=== PATIENT | male | born 1950 | race American Indian/Alaskan Native ===

== ENCOUNTER 2018-09-14 08:28 | Inpatient (IN) | payer MEDICARE, OTHER ==
[2018-09-14] MEDS ORDERED: NACL 0.9% 500 ML 500 ML IV ONE (08:34)
[2018-09-14] MEDS ORDERED: TYLENOL PO ONE (08:40)
[2018-09-14 09:06] LABS: Basophils % (Auto) 0.3 % (0.0-1.8); Eosinophils % (Auto) 0.3 % (0.0-4.3); Hematocrit 36.4 % (35.5-45.6); Hemoglobin 12.7 gm/dl (11.8-15.2); Lymphocytes # (Auto) 1.1 K/mm3 (1.2-5.4); Lymphocytes % (Auto) 7.6 % (13.4-35.0); Mean Corpuscular HGB Conc 35 % (32-34); Mean Corpuscular Volume 84 fl (84-94); Monocytes # (Auto) 1.3 K/mm3 (0.0-0.8); Monocytes % (Auto) 9.1 % (0.0-7.3); Platelet Count 617 K/mm3 (140-440); Red Blood Count 4.35 M/mm3 (3.65-5.03); Red Cell Distribution Width 13.9 % (13.2-15.2)
--- NOTE | 2018-09-14 09:14 | XRay Report ---
AP CHEST: HISTORY: Possible sepsis No comparison. There is an approximate 5 cm cavitary lesion suspected in the right lower lobe. Small right pleural effusion is also suspected. The left lung is clear. Normal heart and mediastinal structures. IMPRESSION: Right lower lobe opacity concerning for pneumonia or abscess. Small right pleural effusion. Consider further evaluation with CT chest with contrast.
[2018-09-14 09:16] LABS: INR 1.08 (0.87-1.13)
[2018-09-14 09:20] LABS: Alanine Aminotransferase 11 units/L (7-56); Albumin 3.4 g/dL (3.9-5); BUN/Creatinine Ratio 9; Blood Urea Nitrogen 9 mg/dL (9-20); Calcium 8.8 mg/dL (8.4-10.2); Hemolysis Index 27
[2018-09-14] MEDS ORDERED: MORPHINE IV ONE (09:43)
[2018-09-14] MEDS ORDERED: NACL 0.9% 1000 ML 1,000 ML IV ONE (09:43)
[2018-09-14] MEDS ORDERED: ZOFRAN IV ONE (09:43)
[2018-09-14] MEDS ORDERED: NACL 0.9% 1000 ML IV ONE (09:44)
[2018-09-14] MEDS ORDERED: ROCEPHIN/NS 2 GM/100 ML 2 GM/100 ML BAG IV SCH (10:00)
[2018-09-14] MEDS ORDERED: ZITHROMAX 500 MG in NACL 0.9% 250ML 250 ML IV SCH (10:00)
--- NOTE | 2018-09-14 10:05 | Emergency Department Report ---
ED General Adult HPI - General Chief complaint: Chest Pain Stated complaint: R SIDE/CHEST PAIN Time Seen by Provider: 09/14/18 09:42 Source: patient Mode of arrival: Ambulatory Limitations: No Limitations - History of Present Illness Initial comments: This is a 67-year-old male has been coughing for the past few weeks. He does not describe joan hemoptysis. His states he had a fever of 102 at home. He did not take Tylenol prior to arrival. He states for the past few days he's had intermittent right-sided chest pain. He's had no recent travel no leg pain and no swelling. A chest film today showed the presence of a right lower lobe apparent abscess. The patient denies a history of TB or a positive skin test. He states he's never had a pneumonia before. The states patient has not seen a physician for more than 10 years. -: week(s) Location: chest Radiation: non-radiation Quality: aching Consistency: intermittent, now resolved Improves with: none, immobilization Associated Symptoms: chest pain, cough, fever/chills Treatments Prior to Arrival: none - Related Data Allergies Allergy/AdvReac Type Severity Reaction Status Date / Time No Known Allergies Allergy Verified 09/14/18 08:30 ED Review of Systems ROS: Stated complaint: R SIDE/CHEST PAIN Other details as noted in HPI Constitutional: denies: chills, fever Eyes: denies: eye pain, eye discharge, vision change ENT: denies: ear pain, throat pain Respiratory: cough. denies: shortness of breath, wheezing Cardiovascular: chest pain. denies: palpitations Endocrine: no symptoms reported Gastrointestinal: denies: abdominal pain, nausea, diarrhea Genitourinary: denies: urgency, dysuria Musculoskeletal: denies: back pain, joint swelling, arthralgia Skin: denies: rash, lesions Neurological: denies: headache, weakness, paresthesias Psychiatric: denies: anxiety, depression Hematological/Lymphatic: denies: easy bleeding, easy bruising ED Past Medical Hx - Past Medical History Previous Medical History?: No - Surgical History Past Surgical History?: No - Social History Smoking Status: Current Every Day Smoker Substance Use Type: Alcohol ED Physical Exam - General Limitations: No Limitations General appearance: alert, in no apparent distress - Head Head exam: Present: atraumatic, normocephalic - Eye Eye exam: Present: normal appearance. Absent: scleral icterus - ENT ENT exam: Present: mucous membranes moist - Neck Neck exam: Present: normal inspection - Respiratory Respiratory exam: Present: decreased breath sounds (on the right joan rales or rhonchi appreciated). Absent: respiratory distress - Cardiovascular Cardiovascular Exam: Present: regular rate, normal rhythm. Absent: systolic murmur, diastolic murmur, rubs, gallop - GI/Abdominal GI/Abdominal exam: Present: soft, normal bowel sounds. Absent: distended, tenderness, guarding, rebound - Rectal Rectal exam: Present: deferred - Extremities Exam Extremities exam: Present: normal inspection, normal capillary refill. Absent: calf tenderness - Back Exam Back exam: Present: normal inspection - Neurological Exam Neurological exam: Present: alert, oriented X3, CN II-XII intact. Absent: motor sensory deficit - Psychiatric Psychiatric exam: Present: normal affect, normal mood - Skin Skin exam: Present: warm, dry, intact, normal color. Absent: rash ED Course Vital Signs 09/14/18 09/14/18 09/14/18 08:31 09:11 09:31 Temperature 100 F H Pulse Rate 135 H 141 H 116 H Respiratory 22 27 H Rate Blood Pressure 169/113 O2 Sat by Pulse 93 Oximetry 09/14/18 09/14/18 09/14/18 09:39 10:00 10:06 Temperature Pulse Rate 116 H Respiratory 18 22 18 Rate Blood Pressure 153/99 O2 Sat by Pulse 98 96 Oximetry 09/14/18 10:30 Temperature Pulse Rate 103 H Respiratory 26 H Rate Blood Pressure 149/93 O2 Sat by Pulse Oximetry - Reevaluation(s) Reevaluation #1: Discussed with hospitalist. Patient given ceftriaxone and azithromycin. CT of the chest has been ordered. I reviewed the x-ray. It does appear consistent with a thick walled cavity possible abscess. CT will certainly be helpful in elucidating the pathology involved. 09/14/18 10:58 ED Medical Decision Making - Lab Data Result diagrams: 09/14/18 08:47 09/14/18 08:47 Laboratory Results - last 24 hr 09/14/18 09/14/18 09/14/18 08:47 08:47 08:47 WBC 14.2 H RBC 4.35 Hgb 12.7 Hct 36.4 MCV 84 MCH 29 MCHC 35 H RDW 13.9 Plt Count 617 H Lymph % (Auto) 7.6 L Morton % (Auto) 9.1 H Eos % (Auto) 0.3 Baso % (Auto) 0.3 Lymph # 1.1 L Morton # 1.3 H Eos # 0.0 Baso # 0.0 Seg Neutrophils % 82.7 H Seg Neutrophils # 11.7 H PT 14.7 INR 1.08 VBG pH Sodium 133 L Potassium 3.7 Chloride 89.2 L Carbon Dioxide 27 Anion Gap 21 BUN 9 Creatinine 1.0 Estimated GFR > 60 BUN/Creatinine Ratio 9 Glucose 194 H Lactic Acid Calcium 8.8 Total Bilirubin 0.40 AST 16 ALT 11 Alkaline Phosphatase 75 Total Protein 8.2 Albumin 3.4 L Albumin/Globulin Ratio 0.7 09/14/18 09/14/18 08:47 08:47 WBC RBC Hgb Hct MCV MCH MCHC RDW Plt Count Lymph % (Auto) Morton % (Auto) Eos % (Auto) Baso % (Auto) Lymph # Morton # Eos # Baso # Seg Neutrophils % Seg Neutrophils # PT INR VBG pH 7.437 H Sodium Potassium Chloride Carbon Dioxide Anion Gap BUN Creatinine Estimated GFR BUN/Creatinine Ratio Glucose Lactic Acid 1.50 Calcium Total Bilirubin AST ALT Alkaline Phosphatase Total Protein Albumin Albumin/Globulin Ratio - EKG Data -: EKG Interpreted by Me EKG shows normal: sinus rhythm, axis, intervals, QRS complexes, ST-T waves Rate: tachycardia - EKG Data Interpretation: no acute changes - Radiology Data Radiology results: report reviewed Critical care attestation.: If time is entered above; I have spent that time in minutes in the direct care of this critically ill patient, excluding procedure time. ED Disposition Clinical Impression: Cavitary pneumonia Disposition: - OP ADMIT IP TO THIS HOSP Is pt being admited?: Yes Does the pt Need Aspirin: Yes Condition: Stable Instructions: Bacterial Pneumonia (ED) Time of Disposition: 11:00
[2018-09-14] MEDS ORDERED: ZOFRAN IV PRN (10:34)
[2018-09-14] MEDS ORDERED: ALUM-MAG HYDROX-SIMETH 200-200-20MG/5ML PO PRN (10:34)
--- NOTE | 2018-09-14 10:37 | Progress Note ---
Assessment and Plan Sepsis due to lung abscess RLL lung abscess, r/o malignancy tobacco abuse alcohol abuse - admit to tele - consult ID and pulmonary - continue empiric abx, sputum cx - dvt Px Subjective Date of service: 09/14/18 Interval history: This is a 67-year-old male has been coughing for the past few weeks. He does not describe joan hemoptysis. His states he had a fever of 102 at home. He did not take Tylenol prior to arrival. He states for the past few days he's had intermittent right-sided chest pain. He's had no recent travel no leg pain and no swelling. A chest film today showed the presence of a right lower lobe apparent abscess. Objective - Constitutional Vitals: Vital Signs - 12hr 09/14/18 09/14/18 09/14/18 08:31 09:39 10:06 Temperature 100 F H Pulse Rate 135 H Respiratory 18 18 Rate Blood Pressure 169/113 O2 Sat by Pulse 93 98 Oximetry - Labs CBC & Chem 7: 09/14/18 08:47 09/14/18 08:47 Labs: Abnormal lab results 09/14/18 09/14/18 09/14/18 Range/Units 08:47 08:47 08:47 WBC 14.2 H (4.5-11.0) K/mm3 MCHC 35 H (32-34) % Plt Count 617 H (140-440) K/mm3 Lymph % (Auto) 7.6 L (13.4-35.0) % Jewell % (Auto) 9.1 H (0.0-7.3) % Lymph # 1.1 L (1.2-5.4) K/mm3 Jewell # 1.3 H (0.0-0.8) K/mm3 Seg Neutrophils % 82.7 H (40.0-70.0) % Seg Neutrophils # 11.7 H (1.8-7.7) K/mm3 VBG pH 7.437 H (7.320-7.420) Sodium 133 L (137-145) mmol/L Chloride 89.2 L (98-107) mmol/L Glucose 194 H (75-100) mg/dL Albumin 3.4 L (3.9-5) g/dL
[2018-09-14] MEDS ORDERED: ASPIRIN PO ONE (11:00)
[2018-09-14] MEDS ORDERED: D5NS 1,000 ML IV SCH (11:00)
[2018-09-14] MEDS ORDERED: ASPIRIN ONE (12:17)
[2018-09-14] MEDS ORDERED: MORPHINE ONE (12:18)
--- NOTE | 2018-09-14 12:19 | Cat Scan Report ---
PROCEDURE: CT CHEST W CON TECHNIQUE: Computerized axial tomography of the chest was performed during the IV injection of iodin ated nonionic contrast. CT DOSE LENGTH PRODUCT: 616.5 mGycm HISTORY: lung abscess right, consider cancer COMPARISONS: None available at time of interpretation . FINDINGS: Normal cardiac size without pericardial effusion. Intact normal caliber thoracic aorta. Normal-appear ing esophagus. No mediastinal adenopathy. No left hilar mass. Nonspecific slight adenopathy in right hilum may be reactive. Moderate right pleural effusion posteriorly and superiorly. Adjacent right lower lobe consolidation m ay be compressive atelectasis and/or pneumonia. An irregularly marginated thick walled cavitary lesion is noted in the lateral right lower lobe measu ring approximately 7.2 cm. It contains a central air-fluid level with moderate free fluid. Air bubble s are also present within the fluid contents. Findings may reflect lung abscess. Differential include s cavitary neoplasm. Nonspecific, smoothly marginated, simple appearing, low density bilateral renal lesions are statistic ally most likely cysts. They are too numerous to count. Degenerative change in the spine. No acute fracture. No pneumothorax. Upper lobe pulmonary emphysema. Nonspecific nodular anterior pleural calcifications bilaterally. Linear scar versus atelectasis left lung base. IMPRESSION: Irregularly marginated thick walled cavitary lesion in lateral right lower lobe, containing fluid lev el and air bubbles, may represent lung abscess. Differential includes cavitary neoplasm Moderate right pleural effusion posteriorly and superiorly. Adjacent right lower lobe consolidation m ay be compressive atelectasis and/or pneumonia Nonspecific slight adenopathy in the right hilum may be reactive and/or neoplastic Upper lobe pulmonary emphysema Nonspecific nodular anterior pleural calcifications in both upper lobes This document is electronically signed by Aren Melgar MD., Sep 14 2018 12:17:00 PM ET
[2018-09-14] MEDS ORDERED: APRESOLINE ONE (12:35)
[2018-09-14] MEDS: APRESOLINE IV PRN ×3 (12:37→23:54)
[2018-09-14 12:45] LABS: Bilirubin,Urine NEG (Negative); Blood,Urine MOD (Negative); Color,Urine Straw (Yellow); Protein,Urine <15 mg/dL mg/dL (Negative); Urobilinogen,Urine < 2.0 mg/dL (<2.0)
[2018-09-14] MEDS ORDERED: VANCOMYCIN PHARMACY TO DOSE IV SCH (13:00)
[2018-09-14] MEDS ORDERED: TYLENOL ONE (13:10)
[2018-09-14] MEDS ORDERED: VANCOMYCIN 1,250 MG in NACL 0.9% 250ML 250 ML IV ONE (14:00)
[2018-09-14] MEDS: DUONEB *Not for PRN Use IH SCH ×2 (14:36→20:50)
[2018-09-14] MEDS: LOVENOX SUB-Q SCH (21:28)
[2018-09-14] MEDS: PEPCID PO SCH (21:28)
[2018-09-14] MEDS: NORCO 5/325 PO PRN (23:58)
[2018-09-15] MEDS: TYLENOL PO PRN ×3 (01:42→19:54)
[2018-09-15] MEDS ORDERED: D5NS 1,000 ML IV SCH (01:55)
[2018-09-15] MEDS ORDERED: VANCOMYCIN/NS 1 GM/250 ML 1 GM/250 ML BAG IV SCH (02:00)
[2018-09-15] MEDS: DUONEB *Not for PRN Use IH SCH ×4 (02:36→20:25)
[2018-09-15] MEDS: APRESOLINE IV PRN ×3 (04:45→19:55)
[2018-09-15 05:09] LABS: Basophils # (Auto) 0.2 K/mm3 (0.0-0.1); Basophils % (Auto) 0.9 % (0.0-1.8); Eosinophils % (Auto) 0.1 % (0.0-4.3); Hematocrit 33.4 % (35.5-45.6); Hemoglobin 11.3 gm/dl (11.8-15.2); Lymphocytes # (Auto) 0.7 K/mm3 (1.2-5.4); Lymphocytes % (Auto) 3.6 % (13.4-35.0); Mean Corpuscular HGB Conc 34 % (32-34); Mean Corpuscular Volume 84 fl (84-94); Monocytes # (Auto) 1.2 K/mm3 (0.0-0.8); Monocytes % (Auto) 6.6 % (0.0-7.3); Platelet Count 472 K/mm3 (140-440); Red Blood Count 3.97 M/mm3 (3.65-5.03); Red Cell Distribution Width 13.7 % (13.2-15.2)
[2018-09-15 05:15] LABS: BUN/Creatinine Ratio 10; Blood Urea Nitrogen 8 mg/dL (9-20); Calcium 8.1 mg/dL (8.4-10.2); Hemolysis Index 5
[2018-09-15] MEDS: D5NS 1,000 ML IV SCH ×2 (06:57→23:46)
--- NOTE | 2018-09-15 08:06 | Consultation ---
History of Present Illness - Reason for Consult Consult date: 09/15/18 Lung abscess Requesting physician: JACQUELINE PATEL - History of Present Illness HPI: 67 yo M PMH HTN, doesn't take meds and has not been to a doctor in many years, who became sick last 09/06/18 with fever, chills, cough of brownish sputum, not foul smelling, R sided chest pain worse with breathing and coughing and SOB. Pt reports symptoms started after an episode of binge drinking. Denies N/V/D, he is constipated. Denies hemoptysis. No recent travel. No travel outside [facility]. Denies TB contacts, denies prior TB skin testing. Has never been in jailed. In the ER T 100, pulse 135, RR 22, SO2 93%, BP 169/113. Labs showed WBC 14.2, H/H 12.7, PLTs 617. CXR showed right lower lobe opacity co ncerning for pneumonia or abscess. CT chest showed irregular marginated thick walled cavitary lesion in lateral right lower lobe containing fluid level and air bubbles, that may represent an abscess, differential includes cavitary neoplasm. Moderate right pleural effusion posteriorly and superiorly. Adjacent right lower lobe consolidation might be compressive atelectasis and/or pneumonia. Nonspecific slight adenopathy in the right hilum may be reactive and/or neoplastic. Pt was started on ceftriaxone, azithromycin and vancomycin. ID is consulted for further antibiotic management. Microbiology: -Blood cultures 09/14: in progress -Sputum culture 09/15 in progress Current Antimicrobials: Ceftriaxone 09/14- Vancomycin 09/14- Azithromycin 09/14- Review of systems Constitutional: + chills, fever Eyes: denies: eye pain, eye discharge, vision change ENT: denies: ear pain, throat pain Respiratory: +cough. + shortness of breath, + R sided CP Cardiovascular: + R sided chest pain. denies: palpitations Endocrine: no symptoms reported Gastrointestinal: denies: abdominal pain, nausea, diarrhea. +constipation. Genitourinary: denies: urgency, dysuria Musculoskeletal: denies: back pain, joint swelling, arthralgia Skin: denies: rash, lesions Neurological: denies: headache, weakness, paresthesias Psychiatric: denies: anxiety, depression Hematological/Lymphatic: denies: easy bleeding, easy bruising Past History Past Medical History: other (HTN) Social history: , smoking, alcohol abuse, other (Smokes marijuana. Has used cocaine in the past, not recently. No IVDU.) Medications and Allergies Allergies Allergy/AdvReac Type Severity Reaction Status Date / Time No Known Allergies Allergy Verified 09/14/18 08:30 Home Medications Medication Instructions Recorded Confirmed Last Taken Type Ascorbic Acid/Multivit-Min 1,000 mg PO PRN 09/14/18 09/14/18 Unknown History [Emergen-C 1,000 mg Packet] Ibuprofen [Motrin] 400 mg PO Q6H PRN 09/14/18 09/14/18 Unknown History Active Meds: Active Medications Acetaminophen (Tylenol) 650 mg PO Q4H PRN PRN Reason: Pain MILD(1-3)/Fever >100.5/MATIAS Last Admin: 09/15/18 01:42 Dose: 650 mg Documented by: Acetaminophen/Hydrocodone Bitart (Madison 5/325) 2 each PO Q6H PRN PRN Reason: Pain, Moderate (4-6) Last Admin: 09/14/18 23:58 Dose: 2 each Documented by: Al Hydrox/Mg Hydrox/Simethicone (Alum-Mag Hydrox-Simeth [phone]/5ml) 30 ml PO Q4H PRN PRN Reason: Indigestion Albuterol/Ipratropium (Duoneb *Not For Prn Use*) 1 ampul IH Q6HRT [facility] Last Admin: 09/15/18 02:36 Dose: Not Given Documented by: Amlodipine Besylate (Norvasc) 5 mg PO QDAY [facility] Enoxaparin Sodium (Lovenox) 40 mg SUB-Q QDAY@2200 [facility] Last Admin: 09/14/18 21:28 Dose: 40 mg Documented by: Famotidine (Pepcid) 20 mg PO BID [facility] Last Admin: 09/14/18 21:28 Dose: 20 mg Documented by: Hydralazine HCl (Apresoline) 10 mg IV Q4H PRN PRN Reason: Hypertension Last Admin: 09/15/18 04:45 Dose: 10 mg Documented by: Ceftriaxone Sodium (Rocephin/Ns 2 Gm/100 Ml) 2 gm in 100 mls @ 200 mls/hr IV Q24HR [facility]; Protocol Azithromycin 500 mg/ Sodium (Chloride) 250 mls @ 250 mls/hr IV Q24HR [facility]; Protocol Vancomycin HCl (Vancomycin/Ns 1 Gm/250 Ml) 1 gm in 250 mls @ 167.007 mls/hr IV Q12H [facility] Last Admin: 09/15/18 01:15 Dose: 167.007 mls/hr Documented by: Dextrose/Sodium Chloride (D5ns) 1,000 mls @ 83 mls/hr IV DIRECT [facility] Last Admin: 09/15/18 06:57 Dose: 83 mls/hr Documented by: Metoprolol Tartrate (Lopressor) 25 mg PO BID [facility] Ondansetron HCl (Zofran) 4 mg IV Q8H PRN PRN Reason: N/V unrelieved by Meenu Physical Examination - Physical Exam Narrative exam: General appearance: Pt is Awake, Alert in NAD, conversant. On room air. Not toxic appearing. Eyes: anicteric sclerae, moist conjunctivae; no lid-lag; PERRLA HENT: Atraumatic; oropharynx clear with moist mucous membranes and no mucosal ulcerations/no oral thrush; normal hard and soft palate. Normal external ears. Neck: Trachea midline; supple, no thyromegaly or lymphadenopathy Lungs: Decreased BS Right base. Normal respiratory effort and no intercostal retractions CV: RRR, no murmurs Abdomen: Soft, non-tender; no masses or hepatosplenomegaly Extremities: No peripheral edema or extremity lymphadenopathy Skin: Normal temperature, turgor and texture; no rash, ulcers or subcutaneous nodules Psych: Appropriate affect, alert and oriented to person, place and time. Neuro: alert and oriented x 3. Moving all extermities. Non-focal. Lines: No CVL / PICC - Constitutional Vitals: Vital Signs Temp Pulse Resp BP Pulse Ox 102.6 F H 106 H 18 169/102 95 09/15/18 01:37 09/15/18 06:17 09/14/18 21:05 09/15/18 04:45 09/14/18 21:23 Temperature -Last 24 Hours Temperature 102.6 F Temperature 97.6 F Temperature 98.8 F Temperature 98.1 F Temperature 98.3 F Temperature 100 F Temperature 99.1 F Temperature 100 F Results - Labs CBC & Chem 7: 09/15/18 04:40 09/15/18 04:40 Labs: Abnormal lab results 09/14/18 09/14/18 09/14/18 Range/Units 08:47 08:47 08:47 WBC 14.2 H (4.5-11.0) K/mm3 Hgb (11.8-15.2) gm/dl Hct (35.5-45.6) % MCHC 35 H (32-34) % Plt Count 617 H (140-440) K/mm3 Lymph % (Auto) 7.6 L (13.4-35.0) % Coleman % (Auto) 9.1 H (0.0-7.3) % Lymph # 1.1 L (1.2-5.4) K/mm3 Coleman # 1.3 H (0.0-0.8) K/mm3 Baso # (0.0-0.1) K/mm3 Seg Neutrophils % 82.7 H (40.0-70.0) % Seg Neutrophils # 11.7 H (1.8-7.7) K/mm3 VBG pH 7.437 H (7.320-7.420) Sodium 133 L (137-145) mmol/L Potassium (3.6-5.0) mmol/L Chloride 89.2 L (98-107) mmol/L BUN (9-20) mg/dL Glucose 194 H (75-100) mg/dL Calcium (8.4-10.2) mg/dL Albumin 3.4 L (3.9-5) g/dL Ur Specific Leopold (1.003-1.030) 09/14/18 09/15/18 09/15/18 Range/Units 11:51 04:40 04:40 WBC 18.6 H (4.5-11.0) K/mm3 Hgb 11.3 L (11.8-15.2) gm/dl Hct 33.4 L (35.5-45.6) % MCHC (32-34) % Plt Count 472 H (140-440) K/mm3 Lymph % (Auto) 3.6 L (13.4-35.0) % Coleman % (Auto) (0.0-7.3) % Lymph # 0.7 L (1.2-5.4) K/mm3 Coleman # 1.2 H (0.0-0.8) K/mm3 Baso # 0.2 H (0.0-0.1) K/mm3 Seg Neutrophils % 88.8 H (40.0-70.0) % Seg Neutrophils # 16.5 H (1.8-7.7) K/mm3 VBG pH (7.320-7.420) Sodium 133 L (137-145) mmol/L Potassium 3.3 L (3.6-5.0) mmol/L Chloride 95.5 L (98-107) mmol/L BUN 8 L (9-20) mg/dL Glucose 180 H (75-100) mg/dL Calcium 8.1 L (8.4-10.2) mg/dL Albumin (3.9-5) g/dL Ur Specific Leopold 1.031 H (1.003-1.030) - Imaging and Cardiology Chest x-ray: report reviewed CT scan - chest: report reviewed Assessment and Plan Assessment: 67-year-old male PMH HTN, not on meds, has not been to a doctor in many years, who abuses alcohol and tobacco and presented to the ER on 09/14/18 with complaints of cough, fever, SOB and right-sided chest pain. Found to have a right lower lobe lung cavitary lesion. 1) Sepsis: Present on admission, manifested by fever, tachycardia, leukocytosis. Etiology R lung abscess/pneumonia. 2) RLL cavitary lesion with adjacent consolidation and moderate pleural effusion. Differential diagnosis includes lung abscess/aspiration pneumonia vs. cavitary neoplasm. Suspect is due to aspiration due to reduce level of consciousness in setting of alcoholism. Mouth exam grossly normal, therefore less likely due to periodontal disease/gingivitis. No h/o of overseas travel or TB contacts. 3) h/o etoh and tobacco abuse Plan: -Will f/u sputum cx and blood cx -check Quantiferon, HIV -Stop azithromycin, ceftriaxone, iv vancomycin -Start zosyn -d/w pt, RN -Further recommendations as case progresses. Thank you for your consultation, will follow up with you. Rebekah Whaley MD Infectious Diseases Specialist [facility] ([facility] M [phone]
[2018-09-15] MEDS ORDERED: ZITHROMAX 500 MG in NACL 0.9% 250ML 250 ML IV SCH (10:00)
[2018-09-15] MEDS ORDERED: ROCEPHIN/NS 2 GM/100 ML 2 GM/100 ML BAG IV SCH (10:00)
[2018-09-15] MEDS: NORVASC PO SCH (10:12)
[2018-09-15] MEDS: LOPRESSOR PO SCH ×2 (10:12→21:07)
[2018-09-15] MEDS: PEPCID PO SCH ×2 (10:13→21:07)
--- NOTE | 2018-09-15 10:47 | History and Physical Report ---
History of Present Illness Date of examination: 09/14/18 Date of admission: 09/14/18 10:35 Chief complaint: right sided chest pain History of present illness: This is a 67-year-old male with medical history of HTN doesn't take meds, tobacco and alcohol abuse presented with c/o coughing of brownish sputum for the past few weeks along with fever, chills. He does not describe joan hemoptysis. His stated that he had a fever of 102 at home. He did not take Tylenol prior to arrival. He also c/o intermittent right-sided chest pain for the past few days specially when he coughs . He's had no recent travel no leg pain and no swelling. In the ER CXR showed right lower lobe opacity concerning for pneumonia or abscess. CT chest showed irregular marginated thick walled cavitary lesion in lateral right lower lobe containing fluid level and air bubbles, that may represent an abscess, differential includes cavitary neoplasm. He was placed on iv abx, being admitted for further evaluation and management. Review of systems Constitutional: + chills, fever Eyes: denies: eye pain, eye discharge, vision change ENT: denies: ear pain, throat pain Respiratory: +cough. + shortness of breath, + R sided CP Cardiovascular: + R sided chest pain. denies: palpitations Endocrine: no symptoms reported Gastrointestinal: denies: abdominal pain, nausea, diarrhea. +constipation. Genitourinary: denies: urgency, dysuria Musculoskeletal: denies: back pain, joint swelling, arthralgia Skin: denies: rash, lesions Neurological: denies: headache, weakness, paresthesias Psychiatric: denies: anxiety, depression Hematological/Lymphatic: denies: easy bleeding, easy bruising Past History Past Medical History: other (HTN) Past Surgical History: No surgical history Social history: , smoking, alcohol abuse, other (Smokes marijuana. Has used cocaine in the past, not recently. No IVDU.) Family history: cancer (in sisters unsure what type) Medications and Allergies Allergies Allergy/AdvReac Type Severity Reaction Status Date / Time No Known Allergies Allergy Verified 09/14/18 08:30 Home Medications Medication Instructions Recorded Confirmed Last Taken Type ALBUTEROL NEB's [Proventil 0.083% 2.5 mg IH Q4HRT PRN #30 nebu 09/20/18 Unknown Rx NEBS] Acetaminophen [Acetaminophen TAB] 650 mg PO Q4H PRN #30 tablet 09/20/18 Unknown Rx Famotidine [Pepcid] 20 mg PO BID #15 tablet 09/20/18 Unknown Rx HYDROcodone/APAP 5-325 [[place] 2 each PO Q6H PRN #10 tablet 09/20/18 Unknown Rx 5-325 mg TAB] Ipratropium/Albuterol Sulfate 1 ampul IH TIDRT #30 ampul.neb 09/20/18 Unknown Rx [DUONEB *Not for PRN Use*] Lisinopril [Zestril TAB] 10 mg PO BID #60 tablet 09/20/18 Unknown Rx Metoprolol [Lopressor TAB] 50 mg PO BID #60 tablet 09/20/18 Unknown Rx amLODIPine [Norvasc] 10 mg PO DAILY #30 tablet 09/20/18 Unknown Rx Active Meds: Active Medications Acetaminophen (Tylenol) 650 mg PO Q4H PRN PRN Reason: Pain MILD(1-3)/Fever >100.5/MATIAS Last Admin: 09/15/18 10:14 Dose: 650 mg Documented by: Acetaminophen/Hydrocodone Bitart ([place] 5/325) 2 each PO Q6H PRN PRN Reason: Pain, Moderate (4-6) Last Admin: 09/14/18 23:58 Dose: 2 each Documented by: Al Hydrox/Mg Hydrox/Simethicone (Alum-Mag Hydrox-Simeth 718-235-37mm/5ml) 30 ml PO Q4H PRN PRN Reason: Indigestion Albuterol/Ipratropium (Duoneb *Not For Prn Use*) 1 ampul IH Q6HRT [facility] Last Admin: 09/15/18 08:03 Dose: 1 ampul Documented by: Amlodipine Besylate (Norvasc) 5 mg PO QDAY [facility] Last Admin: 09/15/18 10:12 Dose: 5 mg Documented by: Enoxaparin Sodium (Lovenox) 40 mg SUB-Q QDAY@2200 [facility] Last Admin: 09/14/18 21:28 Dose: 40 mg Documented by: Famotidine (Pepcid) 20 mg PO BID [facility] Last Admin: 09/15/18 10:13 Dose: 20 mg Documented by: Hydralazine HCl (Apresoline) 10 mg IV Q4H PRN PRN Reason: Hypertension Last Admin: 09/15/18 04:45 Dose: 10 mg Documented by: Dextrose/Sodium Chloride (D5ns) 1,000 mls @ 83 mls/hr IV DIRECT [facility] Last Admin: 09/15/18 06:57 Dose: 83 mls/hr Documented by: Piperacillin Sod/Tazobactam Sod (Zosyn/Ns 3.375gm/50ml) 3.375 gm in 50 mls @ 100 mls/hr IV Q8H [facility]; Protocol Metoprolol Tartrate (Lopressor) 25 mg PO BID [facility] Last Admin: 09/15/18 10:12 Dose: 25 mg Documented by: Ondansetron HCl (Zofran) 4 mg IV Q8H PRN PRN Reason: N/V unrelieved by Reglan Exam - Physical Exam Narrative exam: GENERAL: well-developed and well-nourished -Welsh male lying on bed appeared to be in no discomfort. HEENT: Normocephalic. Atraumatic. No conjunctival congestion or icterus. Patient has moist mucous membranes. NECK: Supple. Trachea midline. CHEST/LUNGS: Coarse breath sounds auscultated mainly on the right side of the lung mckeon, breathing nonlabored. No wheezes crackles or rhonchi. HEART/CARDIOVASCULAR: Regular in rate and rhythm. S1 and S2 positive. ABDOMEN: Abdomen is soft, nontender. Patient has normal bowel sounds. SKIN: There is no rash. Warm and dry. NEURO: No focal motor deficit. Follows command. MUSCULOSKELETAL: No joint effusion or tenderness. EXTRIMITY: No edema, no cyanosis or clubbing. PSYCH: Cooperative. - Constitutional Vitals: Temp Pulse Resp BP Pulse Ox 101.4 F H 120 H 20 191/100 93 09/15/18 08:36 09/15/18 08:40 09/15/18 08:36 09/15/18 08:36 09/15/18 08:36 Results - Labs CBC & Chem 7: 09/20/18 05:06 09/20/18 05:06 Labs: Abnormal lab results 09/14/18 09/15/18 09/15/18 Range/Units 11:51 04:40 04:40 WBC 18.6 H (4.5-11.0) K/mm3 Hgb 11.3 L (11.8-15.2) gm/dl Hct 33.4 L (35.5-45.6) % Plt Count 472 H (140-440) K/mm3 Lymph % (Auto) 3.6 L (13.4-35.0) % Lymph # 0.7 L (1.2-5.4) K/mm3 [place] # 1.2 H (0.0-0.8) K/mm3 Baso # 0.2 H (0.0-0.1) K/mm3 Seg Neutrophils % 88.8 H (40.0-70.0) % Seg Neutrophils # 16.5 H (1.8-7.7) K/mm3 Sodium 133 L (137-145) mmol/L Potassium 3.3 L (3.6-5.0) mmol/L Chloride 95.5 L (98-107) mmol/L BUN 8 L (9-20) mg/dL Glucose 180 H (75-100) mg/dL Calcium 8.1 L (8.4-10.2) mg/dL Ur Specific [place] 1.031 H (1.003-1.030) Assessment and Plan Sepsis due to lung abscess RLL lung abscess, r/o malignancy tobacco abuse alcohol abuse - admit to tele - consult ID and pulmonary - continue empiric abx, sputum cx - dvt Px
[2018-09-15] MEDS ORDERED: K-DUR PO ONE (10:56)
[2018-09-15] MEDS: NORCO 5/325 PO PRN ×2 (12:40→21:08)
[2018-09-15] MEDS: ZOSYN/NS 3.375GM/50ML 3.375 GM/50 ML BAG IV SCH ×2 (12:46→18:34)
--- NOTE | 2018-09-15 13:33 | Progress Note ---
Assessment and Plan Sepsis due to lung abscess RLL lung abscess, r/o malignancy or other pathological process tobacco abuse alcohol abuse - continue empiric abx, ordered sputum cx -Will f/u sputum cx and blood cx -check Quantiferon, HIV - dvt Px, follow clinically Subjective Date of service: 09/15/18 Interval history: Patient seen and examined. Medical records and medication list reviewed. No acute event overnight noted by the RN. Patient continues to complains of right-sided chest pain. Patient is tolerating diet. Discussed plan of care at bedside with patient. Objective - Exam Narrative Exam: GENERAL: well-developed and well-nourished -[place]hut[place] male lying on bed appeared to be in no discomfort. HEENT: Normocephalic. Atraumatic. No conjunctival congestion or icterus. Patient has moist mucous membranes. NECK: Supple. Trachea midline. CHEST/LUNGS: Coarse breath sounds auscultated mainly on the right side of the lung mckeon, breathing nonlabored. No wheezes crackles or rhonchi. HEART/CARDIOVASCULAR: Regular in rate and rhythm. S1 and S2 positive. ABDOMEN: Abdomen is soft, nontender. Patient has normal bowel sounds. SKIN: There is no rash. Warm and dry. NEURO: No focal motor deficit. Follows command. MUSCULOSKELETAL: No joint effusion or tenderness. EXTRIMITY: No edema, no cyanosis or clubbing. PSYCH: Cooperative. - Constitutional Vitals: Vital Signs - 12hr 09/15/18 09/15/18 09/15/18 01:37 04:36 04:45 Temperature 102.6 F H 99.4 F Pulse Rate 107 H Pulse Rate [ Posterior Bilateral Throughout] Respiratory 18 Rate Respiratory Rate [Posterior Bilateral Throughout] Blood Pressure 169/102 169/102 O2 Sat by Pulse 92 Oximetry 09/15/18 09/15/18 09/15/18 06:17 08:30 08:36 Temperature 101.4 F H Pulse Rate 106 H 121 H Pulse Rate [ 121 H Posterior Bilateral Throughout] Respiratory 20 Rate Respiratory 18 Rate [Posterior Bilateral Throughout] Blood Pressure 191/100 O2 Sat by Pulse 93 Oximetry 09/15/18 09/15/18 09/15/18 08:40 11:13 12:12 Temperature 98.7 F Pulse Rate 98 H 98 H Pulse Rate [ 120 H Posterior Bilateral Throughout] Respiratory 20 Rate Respiratory Rate [Posterior Bilateral Throughout] Blood Pressure 170/96 O2 Sat by Pulse 93 Oximetry - Labs CBC & Chem 7: 09/15/18 04:40 09/15/18 04:40 Labs: Abnormal lab results 09/15/18 09/15/18 Range/Units 04:40 04:40 WBC 18.6 H (4.5-11.0) K/mm3 Hgb 11.3 L (11.8-15.2) gm/dl Hct 33.4 L (35.5-45.6) % Plt Count 472 H (140-440) K/mm3 Lymph % (Auto) 3.6 L (13.4-35.0) % Lymph # 0.7 L (1.2-5.4) K/mm3 [place] # 1.2 H (0.0-0.8) K/mm3 Baso # 0.2 H (0.0-0.1) K/mm3 Seg Neutrophils % 88.8 H (40.0-70.0) % Seg Neutrophils # 16.5 H (1.8-7.7) K/mm3 Sodium 133 L (137-145) mmol/L Potassium 3.3 L (3.6-5.0) mmol/L Chloride 95.5 L (98-107) mmol/L BUN 8 L (9-20) mg/dL Glucose 180 H (75-100) mg/dL Calcium 8.1 L (8.4-10.2) mg/dL
--- NOTE | 2018-09-15 16:15 | Consultation ---
History of Present Illness Consult date: 09/15/18 Reason for consult: cough, chest pain History of present illness: pulmonary and critical care cons ultation DR. Schultz thank you for asking us to participate in the care of this patient. This is a 67-year-old male has been coughing for the past few weeks. Denies hemoptysis. His states he had a fever of 102 at home. He states for the past few days he's had intermittent right-sided chest pain. He's had no recent travel no leg pain and no swelling. A chest film today showed the presence of a right lower lobe cavitary pneumonia or abscess. Patient has history of smoking cigars , 2 cigars a day x 50 years. Drinks alcohol and uses marijuana. Counselled to stop those habbits. Worked with [employer] before retired. Worked in the [employer] and with [employer]. Patient and has no children.No known drug allergies. Past History Past Medical History: other (HTN) Past Surgical History: No surgical history Social history: , smoking, alcohol abuse, other (Smokes marijuana. Has used cocaine in the past, not recently. No IVDU.) Family history: cancer (in sisters unsure what type) Medications and Allergies Allergies Allergy/AdvReac Type Severity Reaction Status Date / Time No Known Allergies Allergy Verified 09/14/18 08:30 Home Medications Medication Instructions Recorded Confirmed Last Taken Type Ascorbic Acid/Multivit-Min 1,000 mg PO PRN 09/14/18 09/14/18 Unknown History [Emergen-C 1,000 mg Packet] Ibuprofen [Motrin] 400 mg PO Q6H PRN 09/14/18 09/14/18 Unknown History Active Meds: Active Medications Acetaminophen (Tylenol) 650 mg PO Q4H PRN PRN Reason: Pain MILD(1-3)/Fever >100.5/MATIAS Last Admin: 09/15/18 10:14 Dose: 650 mg Documented by: Acetaminophen/Hydrocodone Bitart ([place] 5/325) 2 each PO Q6H PRN PRN Reason: Pain, Moderate (4-6) Last Admin: 09/15/18 12:40 Dose: 2 each Documented by: Al Hydrox/Mg Hydrox/Simethicone (Alum-Mag Hydrox-Simeth 743-023-69we/5ml) 30 ml PO Q4H PRN PRN Reason: Indigestion Albuterol/Ipratropium (Duoneb *Not For Prn Use*) 1 ampul IH Q6HRT [facility] Last Admin: 09/15/18 15:15 Dose: 1 ampul Documented by: Amlodipine Besylate (Norvasc) 5 mg PO QDAY [facility] Last Admin: 09/15/18 10:12 Dose: 5 mg Documented by: Enoxaparin Sodium (Lovenox) 40 mg SUB-Q QDAY@2200 [facility] Last Admin: 09/14/18 21:28 Dose: 40 mg Documented by: Famotidine (Pepcid) 20 mg PO BID [facility] Last Admin: 09/15/18 10:13 Dose: 20 mg Documented by: Hydralazine HCl (Apresoline) 10 mg IV Q4H PRN PRN Reason: Hypertension Last Admin: 09/15/18 12:40 Dose: 10 mg Documented by: Dextrose/Sodium Chloride (D5ns) 1,000 mls @ 83 mls/hr IV DIRECT [facility] Last Admin: 09/15/18 06:57 Dose: 83 mls/hr Documented by: Piperacillin Sod/Tazobactam Sod (Zosyn/Ns 3.375gm/50ml) 3.375 gm in 50 mls @ 100 mls/hr IV Q8H [facility]; Protocol Last Admin: 09/15/18 12:46 Dose: 100 mls/hr Documented by: Metoprolol Tartrate (Lopressor) 25 mg PO BID [facility] Last Admin: 09/15/18 10:12 Dose: 25 mg Documented by: Ondansetron HCl (Zofran) 4 mg IV Q8H PRN PRN Reason: N/V unrelieved by Reglan Review of Systems All systems: negative Physical Examination Vital signs: Vital Signs Temp Pulse BP Pulse Ox 100 F H 135 H 169/113 93 09/14/18 08:31 09/14/18 08:31 09/14/18 08:31 09/14/18 08:31 General appearance: no acute distress, alert Eyes: non-icteric ENT: oropharynx moist Neck: supple, no JVD Ascultation: Right: diminished breath sounds, rhonchi Cardiovascular: regular rate and rhythm Gastrointestinal: normoactive bowel sounds, soft, non-tender Integumentary: normal Extremities: no cyanosis, no edema Musculoskeletal: no deformities Gait: normal gait normal mental status, non-focal exam, pupils equal and round, CN II-XII normal anxious Results - Laboratory Findings CBC and BMP: 09/15/18 04:40 09/15/18 04:40 PT/INR, D-dimer PT 14.7 Sec. (12.2-14.9) 09/14/18 08:47 INR 1.08 (0.87-1.13) 09/14/18 08:47 Abnormal lab findings: Abnormal Labs 09/14/18 09/14/18 09/14/18 08:47 08:47 08:47 WBC 14.2 H Hgb Hct MCHC 35 H Plt Count 617 H Lymph % (Auto) 7.6 L [place] % (Auto) 9.1 H Lymph # 1.1 L [place] # 1.3 H Baso # Seg Neutrophils % 82.7 H Seg Neutrophils # 11.7 H VBG pH 7.437 H Sodium 133 L Potassium Chloride 89.2 L BUN Glucose 194 H Calcium Albumin 3.4 L Ur Specific [place] 09/14/18 09/15/18 09/15/18 11:51 04:40 04:40 WBC 18.6 H Hgb 11.3 L Hct 33.4 L MCHC Plt Count 472 H Lymph % (Auto) 3.6 L [place] % (Auto) Lymph # 0.7 L [place] # 1.2 H Baso # 0.2 H Seg Neutrophils % 88.8 H Seg Neutrophils # 16.5 H VBG pH Sodium 133 L Potassium 3.3 L Chloride 95.5 L BUN 8 L Glucose 180 H Calcium 8.1 L Albumin Ur Specific [place] 1.031 H - Diagnostic Findings Chest x-ray: report reviewed (Pneumoniaor abscess. Small pleural effusion.), im age reviewed Assessment and Plan This is a 67-year-old male has been coughing for the past few weeks. Denies hemoptysis. His states he had a fever of 102 at home. He states for the past few days he's had intermittent right-sided chest pain. He's had no recent travel no leg pain and no swelling. A chest film today showed the presence of a right lower lobe cavitary pneumonia or abscess. Patient has history of smoking cigars , 2 cigars a day x 50 years. Drinks alcohol and uses marijuana. Counselled to stop those habbits. Worked with [employer] before retired. Worked in the [employer] and with [employer]. Patient and has no children.No known drug allergies. - Patient Problems (1) Cavitary pneumonia Current Visit: Yes Status: Acute Plan to address problem: Cavitary pneumonia or Lung abscess. Patient is on Zosyn. O2 2 litres via nasal canula. ABGs on room air. (2) Essential hypertension Current Visit: Yes Status: Acute Plan to address problem: Management as per primary care.
[2018-09-15] MEDS: LOVENOX SUB-Q SCH (21:13)
[2018-09-15] MEDS: AMBIEN PO PRN (23:45)
[2018-09-16] MEDS: DUONEB *Not for PRN Use IH SCH ×4 (02:14→21:19)
[2018-09-16] MEDS: ZOSYN/NS 3.375GM/50ML 3.375 GM/50 ML BAG IV SCH ×3 (03:00→17:12)
[2018-09-16] MEDS: NORCO 5/325 PO PRN ×3 (03:03→17:13)
[2018-09-16] MEDS: APRESOLINE IV PRN ×3 (05:34→23:50)
[2018-09-16 08:59] LABS: BUN/Creatinine Ratio 12; Blood Urea Nitrogen 7 mg/dL (9-20); Calcium 8.2 mg/dL (8.4-10.2); Hemolysis Index 7
[2018-09-16] MEDS: PEPCID PO SCH ×2 (10:14→21:43)
[2018-09-16] MEDS: LOPRESSOR PO SCH ×2 (10:14→21:43)
[2018-09-16] MEDS: NORVASC PO SCH ×2 (10:14→14:23)
[2018-09-16] MEDS: D5NS 1,000 ML IV SCH (10:15)
[2018-09-16] MEDS ORDERED: K-DUR PO ONE (14:05)
--- NOTE | 2018-09-16 14:07 | Progress Note ---
Assessment and Plan Acute respiratory failure, hypoxic - likely from lung abscess - O2 sat low on ABG 09/15/18, O2 sat was normal on admission - cont place on O2 N/C and cont nebs and Abx Sepsis due to lung abscess RLL lung abscess, r/o malignancy or other pathological process/TB - continue empiric abx, ordered sputum cx -Will f/u sputum cx, negative blood cx - pending Quantiferon/AFB, negative HIV tobacco abuse alcohol abuse - counseled for cessation Hypokalemia, replete and monitor Kcl, - dvt Px, follow clinically - d/c when clears by ID Subjective Date of service: 09/16/18 Interval history: Patient seen and examined. Medical records and medication list reviewed. No acute event overnight noted by the RN. Patient continues to complains of right-sided chest pain and cough. Patient is tolerating diet. Discussed plan of care at bedside with patient. Objective - Exam Narrative Exam: GENERAL: well-developed and well-nourished -German male lying on bed appeared to be in no discomfort. HEENT: Normocephalic. Atraumatic. No conjunctival congestion or icterus. Patient has moist mucous membranes. NECK: Supple. Trachea midline. CHEST/LUNGS: Coarse breath sounds auscultated mainly on the right side of the lung mckeon, breathing nonlabored. No wheezes crackles or rhonchi. HEART/CARDIOVASCULAR: Regular in rate and rhythm. S1 and S2 positive. ABDOMEN: Abdomen is soft, nontender. Patient has normal bowel sounds. SKIN: There is no rash. Warm and dry. NEURO: No focal motor deficit. Follows command. MUSCULOSKELETAL: No joint effusion or tenderness. EXTRIMITY: No edema, no cyanosis or clubbing. PSYCH: Cooperative. - Constitutional Vitals: Vital Signs - 12hr 09/16/18 09/16/18 09/16/18 02:15 02:36 04:55 Temperature 98.3 F Pulse Rate 100 H Pulse Rate [ 101 H 87 Posterior Bilateral Throughout] Respiratory 18 Rate Respiratory 20 20 Rate [Posterior Bilateral Throughout] Blood Pressure 178/102 O2 Sat by Pulse 97 Oximetry 09/16/18 09/16/18 09/16/18 06:00 07:52 12:00 Temperature 98.5 F Pulse Rate 90 106 H Pulse Rate [ 109 H Posterior Bilateral Throughout] Respiratory 16 Rate Respiratory 22 Rate [Posterior Bilateral Throughout] Blood Pressure 197/105 O2 Sat by Pulse 96 Oximetry 09/16/18 09/16/18 09/16/18 12:15 12:16 12:33 Temperature Pulse Rate Pulse Rate [ 102 H Posterior Bilateral Throughout] Respiratory 17 Rate Respiratory 20 Rate [Posterior Bilateral Throughout] Blood Pressure O2 Sat by Pulse 95 Oximetry 09/16/18 09/16/18 12:35 13:47 Temperature 97.7 F Pulse Rate 92 H 86 Pulse Rate [ Posterior Bilateral Throughout] Respiratory 16 Rate Respiratory Rate [Posterior Bilateral Throughout] Blood Pressure 165/99 O2 Sat by Pulse 96 Oximetry - Labs CBC & Chem 7: 09/17/18 09:50 09/17/18 09:50 Labs: Abnormal lab results 09/15/18 09/16/18 Range/Units 20:41 08:12 POC ABG pH 7.505 H (7.35-7.45) POC ABG pO2 54 L (80-105) Sodium 135 L (137-145) mmol/L Potassium 3.5 L (3.6-5.0) mmol/L Chloride 96.1 L (98-107) mmol/L BUN 7 L (9-20) mg/dL Creatinine 0.6 L (0.8-1.5) mg/dL Glucose 177 H (75-100) mg/dL Calcium 8.2 L (8.4-10.2) mg/dL
[2018-09-16] MEDS ORDERED: NORVASC PO SCH (14:08)
--- NOTE | 2018-09-16 21:11 | Progress Note ---
Assessment and Plan Patient awake resting on nasal cannula. No acute respiratory distress. O2 saturation 96% - Patient Problems (1) Cavitary pneumonia Current Visit: Yes Status: Acute Plan to address problem: Cavitary pneumonia or Lung abscess. Patient's CT scan also showing pleural effusion on right side Patient is on Zosyn. O2 2 litres via nasal canula. ABGs on room air. Schedule for thoracentesis. (2) Essential hypertension Current Visit: Yes Status: Acute Plan to address problem: Management as per primary care. Today's blood pressure 167/96 Subjective Date of service: 09/16/18 Interval history: Patient awake resting on nasal cannula. No acute respiratory distress. O2 satu ration 96%. Objective Vital Signs - 12hr 09/16/18 09/16/18 09/16/18 12:00 12:15 12:16 Temperature Pulse Rate Pulse Rate [ 109 H 102 H Posterior Bilateral Throughout] Respiratory Rate Respiratory 22 20 Rate [Posterior Bilateral Throughout] Blood Pressure O2 Sat by Pulse 95 Oximetry 09/16/18 09/16/18 09/16/18 12:33 12:35 13:47 Temperature 97.7 F Pulse Rate 92 H 86 Pulse Rate [ Posterior Bilateral Throughout] Respiratory 17 16 Rate Respiratory Rate [Posterior Bilateral Throughout] Blood Pressure 165/99 O2 Sat by Pulse 96 Oximetry 09/16/18 09/16/18 17:15 19:23 Temperature 98.5 F 99.8 F H Pulse Rate 100 H 101 H Pulse Rate [ Posterior Bilateral Throughout] Respiratory 16 18 Rate Respiratory Rate [Posterior Bilateral Throughout] Blood Pressure 170/99 167/96 O2 Sat by Pulse 93 92 Oximetry Constitutional: no acute distress, alert Eyes: non-icteric ENT: oropharynx moist Neck: supple, no JVD Ascultation: Right: diminished breath sounds, rhonchi Cardiovascular: regular rate and rhythm Gastrointestinal: normoactive bowel sounds, soft, non-tender Integumentary: normal Extremities: no cyanosis, no edema Neurologic: normal mental status, non-focal exam, pupils equal and round, CN II- XII normal Psychiatric: anxious CBC and BMP: 09/17/18 09:50 09/17/18 09:50 ABG, PT/INR, D-dimer: ABG POC ABG pH 7.505 (7.35-7.45) H 09/15/18 20:41 POC ABG pO2 54 (80-105) L 09/15/18 20:41 POC ABG HCO3 23.1 (22-26 mml/L) 09/15/18 20:41 POC ABG Total CO2 24 (23-27mmol/L) 09/15/18 20:41 POC ABG O2 Sat 91 09/15/18 20:41 PT/INR, D-dimer PT 14.7 Sec. (12.2-14.9) 09/14/18 08:47 INR 1.08 (0.87-1.13) 09/14/18 08:47 Abnormal lab findings: Abnormal Labs 09/14/18 09/14/18 09/14/18 08:47 08:47 08:47 WBC 14.2 H Hgb Hct MCHC 35 H Plt Count 617 H Lymph % (Auto) 7.6 L [place] % (Auto) 9.1 H Lymph # 1.1 L [place] # 1.3 H Baso # Seg Neutrophils % 82.7 H Seg Neutrophils # 11.7 H POC ABG pH POC ABG pO2 VBG pH 7.437 H Sodium 133 L Potassium Chloride 89.2 L BUN Creatinine Glucose 194 H Calcium Albumin 3.4 L Ur Specific [place] 09/14/18 09/15/18 09/15/18 11:51 04:40 04:40 WBC 18.6 H Hgb 11.3 L Hct 33.4 L MCHC Plt Count 472 H Lymph % (Auto) 3.6 L [place] % (Auto) Lymph # 0.7 L [place] # 1.2 H Baso # 0.2 H Seg Neutrophils % 88.8 H Seg Neutrophils # 16.5 H POC ABG pH POC ABG pO2 VBG pH Sodium 133 L Potassium 3.3 L Chloride 95.5 L BUN 8 L Creatinine Glucose 180 H Calcium 8.1 L Albumin Ur Specific [place] 1.031 H 09/15/18 09/16/18 20:41 08:12 WBC Hgb Hct MCHC Plt Count Lymph % (Auto) [place] % (Auto) Lymph # [place] # Baso # Seg Neutrophils % Seg Neutrophils # POC ABG pH 7.505 H POC ABG pO2 54 L VBG pH Sodium 135 L Potassium 3.5 L Chloride 96.1 L BUN 7 L Creatinine 0.6 L Glucose 177 H Calcium 8.2 L Albumin Ur Specific [place]
[2018-09-16] MEDS: ZESTRIL PO SCH (21:43)
[2018-09-16] MEDS: LOVENOX SUB-Q SCH (21:44)
[2018-09-16] MEDS: AMBIEN PO PRN (21:44)
[2018-09-16] MEDS ORDERED: ZESTRIL PO SCH (22:00)
[2018-09-17] MEDS: ZOSYN/NS 3.375GM/50ML 3.375 GM/50 ML BAG IV SCH ×2 (02:20→10:27)
[2018-09-17] MEDS: NORCO 5/325 PO PRN ×2 (02:27→22:49)
[2018-09-17] MEDS: DUONEB *Not for PRN Use IH SCH ×4 (03:18→21:18)
[2018-09-17] MEDS: TYLENOL PO PRN ×2 (09:04→18:10)
[2018-09-17] MEDS: PEPCID PO SCH ×2 (09:05→22:52)
[2018-09-17] MEDS: LOPRESSOR PO SCH ×2 (09:05→22:51)
[2018-09-17] MEDS: ZESTRIL PO SCH ×2 (09:07→22:51)
[2018-09-17] MEDS: NORVASC PO SCH (09:08)
[2018-09-17 10:23] LABS: Hematocrit 36.1 % (35.5-45.6); Hemoglobin 11.9 gm/dl (11.8-15.2); Mean Corpuscular HGB Conc 33 % (32-34); Mean Corpuscular Volume 82 fl (84-94); Platelet Count 643 K/mm3 (140-440); Red Blood Count 4.41 M/mm3 (3.65-5.03); Red Cell Distribution Width 13.8 % (13.2-15.2)
--- NOTE | 2018-09-17 10:41 | Progress Note ---
Assessment and Plan Cultures: 09/14/18 Urine culture: no growth to date 09/14/18 Sputum: moderate growth of usual respiratory adrianne 09/14/09: Blood: no growth Assessment: 67-year-old male PMH HTN, not on meds, has not been to a doctor in many years, who abuses alcohol and tobacco and presented to the ER on 09/14/18 with complaints of cough, fever, SOB and right-sided chest pain. Found to have a right lower lobe lung cavitary lesion. 1) Sepsis: Improved. Leukocytosis and tachycardia continuing. Last fever 09/15/18. Etiology R lung abscess/pneumonia. HIV nonreactive 2) RLL cavitary lesion with adjacent consolidation and moderate pleural effusion. Differential diagnosis includes lung abscess/aspiration pneumonia vs. cavitary neoplasm. TB less likely. No h/o of overseas travel or TB contacts. Suspect is due to aspiration due to reduce level of consciousness in setting of alcoholism. Mouth exam grossly normal, therefore less likely due to periodontal disease/gingivitis. 3) h/o etoh and tobacco abuse Plan: -follow-up Quantiferon -discontinue zosyn -Start Unasyn 3gm IV every 6 hours -AFB and Sputum cultures x 3 ordered. -Airbourne precautions until TB is ruled out. Onelia Arana NP [facility] M: [phone] O:[phone] Subjective Date of service: 09/17/18 Interval history: Patient seen and examined. Reports generalized weakness. + SOB and Cough. No fevers. Objective - Exam Narrative Exam: General appearance: Pt is Awake, Alert in NAD, conversant. Eyes: anicteric sclerae, moist conjunctivae; no lid-lag; PERRLA HENT: Atraumatic; oropharynx clear with moist mucous membranes and no mucosal ulcerations/no oral thrush; normal hard and soft palate. Normal external ears. Neck: Trachea midline; supple, no thyromegaly or lymphadenopathy Lungs: Decreased BS Right base. Normal respiratory effort and no intercostal retractions CV: RRR, no murmurs Abdomen: Soft, non-tender; no masses or hepatosplenomegaly Extremities: No peripheral edema or extremity lymphadenopathy Skin: Normal temperature, turgor and texture; no rash, ulcers or subcutaneous nodules Psych: Appropriate affect, alert and oriented to person, place and time. Neuro: alert and oriented x 3. Moving all extermities. Non-focal. Lines: No CVL / PICC - Constitutional Vitals: Vital Signs Temp Pulse Resp BP Pulse Ox 98.5 F 109 H 20 187/113 97 09/17/18 08:34 09/17/18 10:17 09/17/18 10:17 09/17/18 09:08 09/17/18 10:17 Temperature -Last 24 Hours Temperature 98.5 F Temperature 97.9 F Temperature 98.0 F Temperature 97.8 F Temperature 99.8 F Temperature 98.5 F Temperature 97.7 F - Labs CBC & Chem 7: 09/17/18 09:50 09/17/18 09:50 Labs: Abnormal lab results 09/17/18 Range/Units 09:50 WBC 17.5 H (4.5-11.0) K/mm3 MCV 82 L (84-94) fl MCH 27 L (28-32) pg Plt Count 643 H (140-440) K/mm3
[2018-09-17 11:07] LABS: BUN/Creatinine Ratio 12; Blood Urea Nitrogen 7 mg/dL (9-20); Calcium 8.8 mg/dL (8.4-10.2); Hemolysis Index 1
--- NOTE | 2018-09-17 14:02 | Progress Note ---
Assessment and Plan Acute respiratory failure, hypoxic - likely from lung abscess - O2 sat low on ABG 09/15/18, O2 sat was normal on admission - cont place on O2 N/C and cont nebs and Abx Sepsis due to lung abscess RLL lung abscess, r/o malignancy or other pathological process/TB - continue empiric abx, -Will f/u sputum cx, negative blood cx - pending Quantiferon/AFB, negative HIV - pulmonary and ID following Moderate pleural effusion, POA - ordered CT guided thoracentesis HTN, uncontrolled - monitor BP, adjust meds as needed tobacco abuse alcohol abuse - counseled for cessation Hypokalemia, replete and monitor Kcl, - cont dvt Px, follow clinically - d/c when clears by ID Brief History: 67 yo M PMH HTN, doesn't take meds who became sick last 09/06/18 with fever, chills, cough of brownish sputum, R sided chest pain started after an episode of binge drinking. In the ER CXR showed right lower lobe opacity co ncerning for pneumonia or abscess. CT chest showed irregular marginated thick walled cavitary lesion in lateral right lower lobe containing fluid level and air bubbles, that may represent an abscess, differential includes cavitary neoplasm. Pt was started on ceftriaxone, azithromycin and vancomycin. ID is consulted for further antibiotic management. ordered for CT guided thoracentesis. Subjective Date of service: 09/17/18 Interval history: Patient seen and examined. Medical records and medication list reviewed. No acute event overnight noted by the RN. Patient continues to complains of right-sided chest pain and cough. Patient is tolerating diet. Discussed plan of care at bedside with patient. Objective - Exam Narrative Exam: GENERAL: well-developed and well-nourished -[place] male lying on bed appeared to be in no discomfort. HEENT: Normocephalic. Atraumatic. No conjunctival congestion or icterus. Patient has moist mucous membranes. NECK: Supple. Trachea midline. CHEST/LUNGS: Coarse breath sounds auscultated mainly on the right side of the lung mckeon, breathing nonlabored. No wheezes crackles or rhonchi. HEART/CARDIOVASCULAR: Regular in rate and rhythm. S1 and S2 positive. ABDOMEN: Abdomen is soft, nontender. Patient has normal bowel sounds. SKIN: There is no rash. Warm and dry. NEURO: No focal motor deficit. Follows command. MUSCULOSKELETAL: No joint effusion or tenderness. EXTRIMITY: No edema, no cyanosis or clubbing. PSYCH: Cooperative. - Constitutional Vitals: Vital Signs - 12hr 09/17/18 09/17/18 09/17/18 03:10 03:20 03:51 Temperature 98.0 F Pulse Rate 111 H Pulse Rate [ 106 H 112 H Anterior Bilateral Throughout] Respiratory 18 Rate Respiratory 14 16 Rate [Anterior Bilateral Throughout] Blood Pressure 174/96 O2 Sat by Pulse 94 Oximetry 09/17/18 09/17/18 09/17/18 04:29 08:32 08:34 Temperature 97.9 F 98.5 F Pulse Rate 99 H 107 H 103 H Pulse Rate [ Anterior Bilateral Throughout] Respiratory 18 18 Rate Respiratory Rate [Anterior Bilateral Throughout] Blood Pressure 187/113 O2 Sat by Pulse 91 94 Oximetry 09/17/18 09/17/18 09/17/18 09:05 09:07 09:08 Temperature Pulse Rate 103 H 103 H 103 H Pulse Rate [ Anterior Bilateral Throughout] Respiratory Rate Respiratory Rate [Anterior Bilateral Throughout] Blood Pressure 187/113 187/113 187/113 O2 Sat by Pulse Oximetry 09/17/18 09/17/18 10:17 10:27 Temperature Pulse Rate Pulse Rate [ 109 H Anterior Bilateral Throughout] Respiratory Rate Respiratory 20 20 Rate [Anterior Bilateral Throughout] Blood Pressure O2 Sat by Pulse 97 Oximetry - Labs CBC & Chem 7: 09/17/18 09:50 09/17/18 09:50 Labs: Abnormal lab results 09/17/18 09/17/18 Range/Units 09:50 09:50 WBC 17.5 H (4.5-11.0) K/mm3 MCV 82 L (84-94) fl MCH 27 L (28-32) pg Plt Count 643 H (140-440) K/mm3 Sodium 134 L (137-145) mmol/L Chloride 92.2 L (98-107) mmol/L BUN 7 L (9-20) mg/dL Creatinine 0.6 L (0.8-1.5) mg/dL Glucose 166 H (75-100) mg/dL
--- NOTE | 2018-09-17 14:18 | Progress Note ---
Assessment and Plan Patient awake resting on nasal cannula. No acute respiratory distress. O2 saturation 92%. Explained to the patient in detail about his right lung lesion. Patient also has right pleural effusion.Scheduled for thoracentesis. - Patient Problems (1) Cavitary pneumonia Current Visit: Yes Status: Acute Plan to address problem: Cavitary pneumonia or Lung abscess. Patient's CT scan also showing pleural effusion on right side Patient is on Zosyn. O2 2 litres via nasal canula. ABGs on room air. Schedule for thoracentesis. (2) Essential hypertension Current Visit: Yes Status: Acute Plan to address problem: Today's blood pressure 167/96 Management as per primary care. Subjective Date of service: 09/17/18 Interval history: Patient awake resting on nasal cannula. No acute respiratory distress. O2 saturation 92%. Explained to the patient in detail about his right lung lesion. Patient also has right pleural effusion.Scheduled for thoracentesis. Objective Vital Signs - 12hr 09/17/18 09/17/18 09/17/18 03:10 03:20 03:51 Temperature 98.0 F Pulse Rate 111 H Pulse Rate [ 106 H 112 H Anterior Bilateral Throughout] Respiratory 18 Rate Respiratory 14 16 Rate [Anterior Bilateral Throughout] Blood Pressure 174/96 O2 Sat by Pulse 94 Oximetry 09/17/18 09/17/18 09/17/18 04:29 08:32 08:34 Temperature 97.9 F 98.5 F Pulse Rate 99 H 107 H 103 H Pulse Rate [ Anterior Bilateral Throughout] Respiratory 18 18 Rate Respiratory Rate [Anterior Bilateral Throughout] Blood Pressure 187/113 O2 Sat by Pulse 91 94 Oximetry 09/17/18 09/17/18 09/17/18 09:05 09:07 09:08 Temperature Pulse Rate 103 H 103 H 103 H Pulse Rate [ Anterior Bilateral Throughout] Respiratory Rate Respiratory Rate [Anterior Bilateral Throughout] Blood Pressure 187/113 187/113 187/113 O2 Sat by Pulse Oximetry 09/17/18 09/17/18 10:17 10:27 Temperature Pulse Rate Pulse Rate [ 109 H Anterior Bilateral Throughout] Respiratory Rate Respiratory 20 20 Rate [Anterior Bilateral Throughout] Blood Pressure O2 Sat by Pulse 97 Oximetry Constitutional: no acute distress, alert Eyes: non-icteric ENT: oropharynx moist Neck: supple, no JVD Ascultation: Right: diminished breath sounds, rhonchi Cardiovascular: regular rate and rhythm Gastrointestinal: normoactive bowel sounds, soft, non-tender Integumentary: normal Extremities: no cyanosis, no edema Neurologic: normal mental status, non-focal exam, pupils equal and round, CN II- XII normal Psychiatric: anxious CBC and BMP: 09/17/18 09:50 09/17/18 09:50 ABG, PT/INR, D-dimer: ABG POC ABG pH 7.505 (7.35-7.45) H 09/15/18 20:41 POC ABG pO2 54 (80-105) L 09/15/18 20:41 POC ABG HCO3 23.1 (22-26 mml/L) 09/15/18 20:41 POC ABG Total CO2 24 (23-27mmol/L) 09/15/18 20:41 POC ABG O2 Sat 91 09/15/18 20:41 PT/INR, D-dimer PT 14.7 Sec. (12.2-14.9) 09/14/18 08:47 INR 1.08 (0.87-1.13) 09/14/18 08:47 Abnormal lab findings: Abnormal Labs 09/14/18 09/14/18 09/14/18 08:47 08:47 08:47 WBC 14.2 H Hgb Hct MCV MCH MCHC 35 H Plt Count 617 H Lymph % (Auto) 7.6 L [place] % (Auto) 9.1 H Lymph # 1.1 L [place] # 1.3 H Baso # Seg Neutrophils % 82.7 H Seg Neutrophils # 11.7 H POC ABG pH POC ABG pO2 VBG pH 7.437 H Sodium 133 L Potassium Chloride 89.2 L BUN Creatinine Glucose 194 H Calcium Albumin 3.4 L Ur Specific [place] 09/14/18 09/15/18 09/15/18 11:51 04:40 04:40 WBC 18.6 H Hgb 11.3 L Hct 33.4 L MCV MCH MCHC Plt Count 472 H Lymph % (Auto) 3.6 L [place] % (Auto) Lymph # 0.7 L [place] # 1.2 H Baso # 0.2 H Seg Neutrophils % 88.8 H Seg Neutrophils # 16.5 H POC ABG pH POC ABG pO2 VBG pH Sodium 133 L Potassium 3.3 L Chloride 95.5 L BUN 8 L Creatinine Glucose 180 H Calcium 8.1 L Albumin Ur Specific [place] 1.031 H 09/15/18 09/16/18 09/17/18 20:41 08:12 09:50 WBC 17.5 H Hgb Hct MCV 82 L MCH 27 L MCHC Plt Count 643 H Lymph % (Auto) [place] % (Auto) Lymph # [place] # Baso # Seg Neutrophils % Seg Neutrophils # POC ABG pH 7.505 H POC ABG pO2 54 L VBG pH Sodium 135 L Potassium 3.5 L Chloride 96.1 L BUN 7 L Creatinine 0.6 L Glucose 177 H Calcium 8.2 L Albumin Ur Specific [place] 09/17/18 09:50 WBC Hgb Hct MCV MCH MCHC Plt Count Lymph % (Auto) [place] % (Auto) Lymph # [place] # Baso # Seg Neutrophils % Seg Neutrophils # POC ABG pH POC ABG pO2 VBG pH Sodium 134 L Potassium Chloride 92.2 L BUN 7 L Creatinine 0.6 L Glucose 166 H Calcium Albumin Ur Specific [place]
[2018-09-17] MEDS: UNASYN/NS 3 GM/100 ML 3 GM/100 ML BAG IV SCH ×3 (15:42→22:48)
[2018-09-17 16:24] LABS: INR 1.21 (0.87-1.13)
[2018-09-17] MEDS ORDERED: PROVENTIL IH PRN (22:03)
[2018-09-17] MEDS: AMBIEN PO PRN (22:49)
[2018-09-17] MEDS: LOVENOX SUB-Q SCH (22:50)
[2018-09-18] MEDS: UNASYN/NS 3 GM/100 ML 3 GM/100 ML BAG IV SCH ×4 (05:12→22:54)
[2018-09-18] MEDS: APRESOLINE IV PRN (05:24)
[2018-09-18] MEDS ORDERED: NORCO 10/325 ONE (08:37)
[2018-09-18] MEDS: DUONEB *Not for PRN Use IH SCH ×3 (08:57→20:32)
--- NOTE | 2018-09-18 09:18 | Procedure Note ---
Date of procedure: 09/18/18 Pre-op diagnosis: right pleural effusion Post-op diagnosis: same Procedure: US thoracentesis Findings: moderate loculated complex right pleural effusion Anesthesia: local Surgeon: JAMIE CHU Estimated blood loss: none Pathology: list (10cc) Specimen disposition: to lab Condition: stable Disposition: floor
--- NOTE | 2018-09-18 10:05 | Ultrasound Report ---
ULTRASOUND THORACENTESIS History: Right pleural effusion Description of procedure: Informed consent was obtained. Sterile technique was utilized. 1% lidocaine for skin anesthesia. Initial scan of the chest demonstrates loculated complex right pleural fluid collection. Using ultrasound guidance, a 5 German centesis needle was advanced into the right pleural space. Only approximately 10 cc of yellow cloudy fluid could be aspirated. Examples were sent to laboratory for analysis. Followup chest x-ray was ordered. Impression: Successful ultrasound-guided right thoracentesis however only 10 cc of fluid could be aspirated secondary to extensive loculation.
[2018-09-18] MEDS: NORVASC PO SCH (10:28)
[2018-09-18] MEDS: LOPRESSOR PO SCH ×2 (10:29→22:56)
[2018-09-18] MEDS: ZESTRIL PO SCH ×2 (10:29→22:54)
[2018-09-18] MEDS: PEPCID PO SCH ×2 (10:29→22:54)
--- NOTE | 2018-09-18 10:34 | Progress Note ---
Assessment and Plan Cultures: 09/14/18 Urine culture: no growth to date 09/14/18 Sputum: moderate growth of usual respiratory adrianne 09/14/09: Blood: no growth 09/17/18: Sputum: >10 squamous cells - contaminated Assessment: 67-year-old male PMH HTN, not on meds, has not been to a doctor in many years, who abuses alcohol and tobacco and presented to the ER on 09/14/18 with complaints of cough, fever, SOB and right-sided chest pain. Found to have a right lower lobe lung cavitary lesion. 1) Sepsis: Improved. Leukocytosis and tachycardia continuing. Last fever 09/15/18. Etiology R lung abscess/pneumonia. HIV nonreactive 2) RLL cavitary lesion with adjacent consolidation and moderate pleural effusion. Differential diagnosis includes lung abscess/aspiration pneumonia vs. cavitary neoplasm. TB less likely. No h/o of overseas travel or TB contacts. s/p thoracentesis today, Initial scan of the chest demonstrates loculated complex right pleural fluid collection, 10 cc of yellow cloudy fluid could be aspirated. Fluid collections sent to laboratory for analysis. 3) h/o etoh and tobacco abuse Plan: -follow-up Quantiferon -continue Unasyn 3gm IV every 6 hours -follow-up AFB culture X3 -follow-up thoracentesis fluid cultures -Airbourne precautions until TB is ruled out. [facility] M: [phone] O:[phone] Subjective Date of service: 09/18/18 Interval history: Patient seen and examined. S/p thoracentesis today. states that he is feeling better, decreased cough. No fevers. Objective - Exam Narrative Exam: General appearance: Pt is Awake, Alert in NAD, conversant. Eyes: anicteric sclerae, moist conjunctivae; no lid-lag; PERRLA HENT: Atraumatic; oropharynx clear with moist mucous membranes and no mucosal ulcerations/no oral thrush; normal hard and soft palate. Normal external ears. Neck: Trachea midline; supple, no thyromegaly or lymphadenopathy Lungs: Decreased BS Right base. Normal respiratory effort and no intercostal retractions CV: RRR, no murmurs Abdomen: Soft, non-tender; no masses or hepatosplenomegaly Extremities: No peripheral edema or extremity lymphadenopathy Skin: Normal temperature, turgor and texture; no rash, ulcers or subcutaneous nodules Psych: Appropriate affect, alert and oriented to person, place and time. Neuro: alert and oriented x 3. Moving all extermities. Non-focal. Lines: No CVL / PICC - Constitutional Vitals: Vital Signs Temp Pulse Resp BP Pulse Ox 98.2 F 117 H 18 180/105 89 09/17/18 23:22 09/18/18 05:24 09/18/18 05:19 09/18/18 05:24 09/18/18 05:19 Temperature -Last 24 Hours Temperature 98.2 F Temperature 98.4 F Temperature 99.1 F - Labs CBC & Chem 7: 09/17/18 09:50 09/17/18 09:50 Labs: Abnormal lab results 09/17/18 09/17/18 Range/Units 09:50 15:22 PT 16.1 H (12.2-14.9) Sec. INR 1.21 H (0.87-1.13) Sodium 134 L (137-145) mmol/L Chloride 92.2 L (98-107) mmol/L BUN 7 L (9-20) mg/dL Creatinine 0.6 L (0.8-1.5) mg/dL Glucose 166 H (75-100) mg/dL
--- NOTE | 2018-09-18 12:05 | XRay Report ---
AP CHEST: HISTORY: Complex right pleural effusion, recent thoracentesis Recent ultrasound-guided right thoracentesis was performed. Complex loculated right pleural fluid is unchanged. No pneumothorax is visualized. There is compressive atelectasis in the lateral right lung. Left lung is generally clear. Heart size is within normal limits. IMPRESSION: No evidence for pneumothorax.
--- NOTE | 2018-09-18 12:08 | Progress Note ---
Assessment and Plan Acute respiratory failure, hypoxic - likely from lung abscess - O2 sat low on ABG 09/15/18, O2 sat was normal on admission - cont place on O2 N/C and cont nebs and Abx Sepsis due to lung abscess RLL lung abscess, r/o malignancy or other pathological process/TB - continue empiric abx, -Will f/u sputum cx, negative blood cx - pending Quantiferon/AFB, negative HIV - pulmonary and ID following Moderate pleural effusion, POA - ordered CT guided thoracentesis but could not be drained as it was loculated - sent sample for fluid study HTN, uncontrolled - monitor BP, adjust meds as needed tobacco abuse alcohol abuse - counseled for cessation Hypokalemia, replete and monitor Kcl, - cont dvt Px, follow clinically - d/c when clears by ID - may need home O2 on discharge Brief History: 67 yo M PMH HTN, doesn't take meds who became sick last 09/06/18 with fever, chills, cough of brownish sputum, R sided chest pain started after an episode of binge drinking. In the ER CXR showed right lower lobe opacity concerning for pneumonia or abscess. CT chest showed irregular marginated thick walled cavitary lesion in lateral right lower lobe containing fluid level and air bubbles, that may represent an abscess, differential includes cavitary neoplasm. Pt was started on ceftriaxone, azithromycin and vancomycin. ID is consulted for further antibiotic management. ordered for CT guided thoracentesis. Subjective Date of service: 09/18/18 Interval history: Patient seen and examined. Medical records and medication list reviewed. No acute event overnight noted by the RN. Patient continues to complains of right-sided chest pain and cough but states that is improving. Patient is tolerating diet. Status post right-sided thoracentesis today drained only 10 mL Discussed plan of care at bedside with patient. Objective - Exam Narrative Exam: GENERAL: well-developed and well-nourished -[place] male lying on bed appeared to be in no discomfort. HEENT: Normocephalic. Atraumatic. No conjunctival congestion or icterus. Patient has moist mucous membranes. NECK: Supple. Trachea midline. CHEST/LUNGS: Coarse breath sounds auscultated mainly on the right side of the lung mckeon, breathing nonlabored. No wheezes crackles or rhonchi. HEART/CARDIOVASCULAR: Regular in rate and rhythm. S1 and S2 positive. ABDOMEN: Abdomen is soft, nontender. Patient has normal bowel sounds. SKIN: There is no rash. Warm and dry. NEURO: No focal motor deficit. Follows command. MUSCULOSKELETAL: No joint effusion or tenderness. EXTRIMITY: No edema, no cyanosis or clubbing. PSYCH: Cooperative. - Constitutional Vitals: Vital Signs - 12hr 09/18/18 09/18/18 09/18/18 05:19 05:24 10:00 Pulse Rate 118 H 117 H Pulse Rate [ 99 H Apical] Respiratory 18 Rate Blood Pressure 180/105 180/105 O2 Sat by Pulse 89 100 Oximetry 09/18/18 09/18/18 10:28 10:29 Pulse Rate 80 88 Pulse Rate [ Apical] Respiratory Rate Blood Pressure 138/88 138/88 O2 Sat by Pulse Oximetry - Labs CBC & Chem 7: 09/19/18 00:26 09/17/18 09:50 Labs: Abnormal lab results 09/17/18 Range/Units 15:22 PT 16.1 H (12.2-14.9) Sec. INR 1.21 H (0.87-1.13)
[2018-09-18 15:02] LABS: Total Cells Counted 100 /mm3
[2018-09-18] MEDS: AMBIEN PO PRN (22:54)
[2018-09-18] MEDS: LOVENOX SUB-Q SCH (22:55)
[2018-09-18] MEDS: NORCO 5/325 PO PRN (22:57)
[2018-09-19 00:53] LABS: Basophils % (Auto) 0.2 % (0.0-1.8); Eosinophils % (Auto) 0.2 % (0.0-4.3); Hematocrit 30.5 % (35.5-45.6); Hemoglobin 10.9 gm/dl (11.8-15.2); Lymphocytes # (Auto) 1.4 K/mm3 (1.2-5.4); Mean Corpuscular HGB Conc 36 % (32-34); Mean Corpuscular Volume 82 fl (84-94); Monocytes # (Auto) 1.7 K/mm3 (0.0-0.8); Monocytes % (Auto) 11.6 % (0.0-7.3); Platelet Count 520 K/mm3 (140-440); Red Blood Count 3.71 M/mm3 (3.65-5.03); Red Cell Distribution Width 13.9 % (13.2-15.2)
[2018-09-19] MEDS: UNASYN/NS 3 GM/100 ML 3 GM/100 ML BAG IV SCH ×4 (04:54→22:15)
[2018-09-19] MEDS: NORCO 5/325 PO PRN ×3 (06:01→19:51)
[2018-09-19] MEDS: DUONEB *Not for PRN Use IH SCH ×3 (07:50→20:35)
--- NOTE | 2018-09-19 10:06 | Progress Note ---
Assessment and Plan Cultures: 09/14/18 Urine culture: no growth to date 09/14/18 Sputum: moderate growth of usual respiratory adrianne 09/14/09: Blood: no growth 09/17/18: Sputum: >10 squamous cells - contaminated 09/18/18: Body fluid culture: no growth to date Assessment: 67-year-old male PMH HTN, not on meds, has not been to a doctor in many years, who abuses alcohol and tobacco and presented to the ER on 09/14/18 with complaints of cough, fever, SOB and right-sided chest pain. Found to have a ri ght lower lobe lung cavitary lesion. 1) Sepsis: Improved. Leukocytosis and tachycardia continuing. Last fever 09/15/18. Etiology R lung abscess/pneumonia. HIV nonreactive 2) RLL cavitary lesion with adjacent consolidation and moderate pleural effusion. Differential diagnosis includes lung abscess/aspiration pneumonia vs. cavitary neoplasm. TB less likely. No h/o of overseas travel or TB contacts. s/p thoracentesis today, Initial scan of the chest demonstrates loculated complex right pleural fluid collection, s/p right thoracentesis, 10cc of fluid aspirate d. Fluid appearance cloudy, wbc 5375, rbc 1375, seg 86, lymphocytes 6.0, monocytes 8.0. Glucose and LDH pending. Likely excudate which is consistent with infection. Pleural fluid cultures show no growth to date 3) h/o etoh and tobacco abuse Plan: -follow-up Quantiferon -continue Unasyn 3gm IV every 6 hours -follow-up AFB culture X3 -Air[place] precautions until TB is ruled out. -repeat CXR tomorrow, if not better may need to be seen by CT surgery. -If clinically improved, anticipate discharge on Augmentin 875mg PO BID for 4-6 Onelia [facility] M: [phone] O:[phone] Subjective Date of service: 09/19/18 Interval history: Patient seen and examined. No generalized pain. Cough improved. No fevers. at bedside. Objective - Exam Narrative Exam: General appearance: Pt is Awake, Alert in NAD, conversant. Eyes: anicteric sclerae, moist conjunctivae; no lid-lag; PERRLA HENT: Atraumatic; oropharynx clear with moist mucous membranes and no mucosal ulcerations/no oral thrush; normal hard and soft palate. Normal external ears. Neck: Trachea midline; supple, no thyromegaly or lymphadenopathy Lungs: Decreased BS Right base. Normal respiratory effort and no intercostal retractions CV: RRR, no murmurs Abdomen: Soft, non-tender; no masses or hepatosplenomegaly Extremities: No peripheral edema or extremity lymphadenopathy Skin: Normal temperature, turgor and texture; no rash, ulcers or subcutaneous nodules Psych: Appropriate affect, alert and oriented to person, place and time. Neuro: alert and oriented x 3. Moving all extermities. Non-focal. Lines: No CVL / PICC - Constitutional Vitals: Vital Signs Temp Pulse Resp BP Pulse Ox 98.3 F 120 H 14 155/104 90 09/19/18 08:47 09/19/18 08:47 09/19/18 08:47 09/19/18 08:47 09/19/18 08:47 Temperature -Last 24 Hours Temperature 98.3 F Temperature 98.8 F Temperature 99.7 F Temperature 99.5 F Temperature 98.1 F - Labs CBC & Chem 7: 09/19/18 00:26 09/17/18 09:50 Labs: Abnormal lab results 09/19/18 Range/Units 00:26 WBC 14.3 H (4.5-11.0) K/mm3 Hgb 10.9 L (11.8-15.2) gm/dl Hct 30.5 L (35.5-45.6) % MCV 82 L (84-94) fl MCHC 36 H (32-34) % Plt Count 520 H (140-440) K/mm3 Lymph % (Auto) 10.0 L (13.4-35.0) % [place] % (Auto) 11.6 H (0.0-7.3) % [place] # 1.7 H (0.0-0.8) K/mm3 Seg Neutrophils % 78.0 H (40.0-70.0) % Seg Neutrophils # 11.1 H (1.8-7.7) K/mm3
[2018-09-19] MEDS: LOPRESSOR PO SCH ×3 (12:13→22:16)
[2018-09-19] MEDS: NORVASC PO SCH (12:13)
[2018-09-19] MEDS: PEPCID PO SCH ×2 (12:14→22:15)
[2018-09-19] MEDS: ZESTRIL PO SCH ×3 (12:15→22:16)
--- NOTE | 2018-09-19 14:48 | Progress Note ---
Assessment and Plan Acute respiratory failure, hypoxic, resolving - likely from lung abscess - O2 sat low on ABG 09/15/18, O2 sat was normal on admission - cont place on O2 N/C and cont nebs and Abx Sepsis due to lung abscess RLL lung abscess, r/o malignancy or other pathological process/TB - continue empiric abx, negative blood cx, negative HIV - pulmonary and ID following - pending Quantiferon/AFB x3 , -continue Unasyn 3gm IV every 6 hours apart ID -[place] precautions until TB is ruled out. Per ID: -repeat CXR tomorrow, if not better may need to be seen by CT surgery. -If clinically improved, anticipate discharge on Augmentin 875mg PO BID for 4-6 Moderate pleural effusion, POA -Status post CT guided right thoracentesis but could not be drained more than 10 mL as it was loculated - Fluid appearance cloudy, wbc 5375, rbc 1375, seg 86, lymphocytes 6.0, monocytes 8.0. Glucose and LDH pending. Likely excudate which is consistent with infection. Pleural fluid cultures show no growth to date HTN, uncontrolled - monitor BP, adjust meds as needed - Currently on amlodipine, lisinopril and metoprolol tobacco abuse alcohol abuse - counseled for cessation Hypokalemia, repleted and monitor K, - cont dvt Px, follow clinically - d/c when clears by ID and AFB negative - may need home O2 on discharge Brief History: 67 yo M PMH HTN, doesn't take meds who became sick last 09/06/18 with fever, chills, cough of brownish sputum, R sided chest pain started after an episode of binge drinking. In the ER CXR showed right lower lobe opacity concerning for pneumonia or abscess. CT chest showed irregular marginated thick walled cavitary lesion in lateral right lower lobe containing fluid level and air bubbles, that may represent an abscess, differential includes cavitary neoplasm. Pt was started on ceftriaxone, azithromycin and vancomycin. ID is consulted for further antibiotic management. s/p CT guided thoracentesis. Subjective Date of service: 09/19/18 Interval history: Patient seen and examined. Medical records and medication list reviewed. No acute event overnight noted by the RN. Patient continues to complains of right-sided chest pain and cough but states that is improving. Patient is tolerating diet. Discussed plan of care at bedside with patient. Pending results of quantitative and AFB study Objective - Exam Narrative Exam: GENERAL: well-developed and well-nourished -British male lying on bed appeared to be in no discomfort. HEENT: Normocephalic. Atraumatic. No conjunctival congestion or icterus. Patient has moist mucous membranes. NECK: Supple. Trachea midline. CHEST/LUNGS: Coarse breath sounds auscultated mainly on the right side of the lung mckeon, breathing nonlabored. No wheezes crackles or rhonchi. HEART/CARDIOVASCULAR: Regular in rate and rhythm. S1 and S2 positive. ABDOMEN: Abdomen is soft, nontender. Patient has normal bowel sounds. SKIN: There is no rash. Warm and dry. NEURO: No focal motor deficit. Follows command. MUSCULOSKELETAL: No joint effusion or tenderness. EXTRIMITY: No edema, no cyanosis or clubbing. PSYCH: Cooperative. - Constitutional Vitals: Vital Signs - 12hr 09/19/18 09/19/18 09/19/18 03:39 06:01 07:51 Temperature 98.8 F Pulse Rate 105 H Pulse Rate [ 102 H Anterior Bilateral Throughout] Respiratory 19 18 Rate Respiratory 18 Rate [Anterior Bilateral Throughout] Blood Pressure 154/98 O2 Sat by Pulse 92 Oximetry 09/19/18 09/19/18 09/19/18 07:54 08:09 08:47 Temperature 98.3 F Pulse Rate 120 H Pulse Rate [ 112 H Anterior Bilateral Throughout] Respiratory 14 Rate Respiratory 20 Rate [Anterior Bilateral Throughout] Blood Pressure 155/104 O2 Sat by Pulse 92 90 Oximetry 09/19/18 09/19/18 09/19/18 12:13 12:15 13:44 Temperature 99.2 F Pulse Rate 90 90 113 H Pulse Rate [ Anterior Bilateral Throughout] Respiratory 16 Rate Respiratory Rate [Anterior Bilateral Throughout] Blood Pressure 155/104 155/104 158/96 O2 Sat by Pulse 91 Oximetry - Labs CBC & Chem 7: 09/19/18 00:26 09/17/18 09:50 Labs: Abnormal lab results 09/19/18 Range/Units 00:26 WBC 14.3 H (4.5-11.0) K/mm3 Hgb 10.9 L (11.8-15.2) gm/dl Hct 30.5 L (35.5-45.6) % MCV 82 L (84-94) fl MCHC 36 H (32-34) % Plt Count 520 H (140-440) K/mm3 Lymph % (Auto) 10.0 L (13.4-35.0) % [place] % (Auto) 11.6 H (0.0-7.3) % [place] # 1.7 H (0.0-0.8) K/mm3 Seg Neutrophils % 78.0 H (40.0-70.0) % Seg Neutrophils # 11.1 H (1.8-7.7) K/mm3
--- NOTE | 2018-09-19 19:39 | Progress Note ---
Assessment and Plan Patient resting on room air. No acute respiratory distress. O2 saturation 91%. Patient undergone thoracentesis under ultrasound by interventional radiology. Pleural Fluid appearance cloudy, wbc 5375, rbc 1375, seg 86, lymphocytes 6.0, monocytes 8.0. Glucose, Protein and LDH and cytology results pending.Numerous clusters of neutropils reported. Likely consistent with infection. Pleural fluid cultures show no growth to date. Pleural fluid immno stain for cytology pending. Also recommend percutaneous needle biopsy of right chest lesion under CT guidance, if pleural fluid cytology negative for malignant cells. Patients PO2 is Low. Patient also candidate for home O2. - Patient Problems (1) Cavitary pneumonia Current Visit: Yes Status: Acute Plan to address problem: Cavitary pneumonia or Lung abscess and pleural effusion. Patient undergone right thoracentesis. Patient is on Zosyn. O2 2 litres via nasal canula. Patient candidate for home O2. (2) Essential hypertension Current Visit: Yes Status: Acute Plan to address problem: Today's blood pressure 158/96 Management as per primary care. Subjective Date of service: 09/19/18 Interval history: Patient resting on room air. No acute respiratory distress. O2 saturation 91%. Patient undergone thoracentesis under ultrasound by interventional radiology. Pleural Fluid appearance cloudy, wbc 5375, rbc 1375, seg 86, lymphocytes 6.0, monocytes 8.0. Glucose, Protein and LDH and cytology results pending.Numerous clusters of neutropils reported. Likely consistent with infection. Pleural fluid cultures show no growth to date. Pleural fluid immno stain for cytology pending. Also recommend percutaneous needle biopsy of right chest lesion under CT guidance, if pleural fluid cytology negative for malignant cells. Patients PO2 is Low. Patient also candidate for home O2. Objective Vital Signs - 12hr 09/19/18 09/19/18 09/19/18 07:51 07:54 08:09 Temperature Pulse Rate Pulse Rate [ 102 H 112 H Anterior Bilateral Throughout] Respiratory Rate Respiratory 18 20 Rate [Anterior Bilateral Throughout] Blood Pressure O2 Sat by Pulse 92 Oximetry 09/19/18 09/19/18 09/19/18 08:47 12:13 12:15 Temperature 98.3 F Pulse Rate 120 H 90 90 Pulse Rate [ Anterior Bilateral Throughout] Respiratory 14 Rate Respiratory Rate [Anterior Bilateral Throughout] Blood Pressure 155/104 155/104 155/104 O2 Sat by Pulse 90 Oximetry 09/19/18 09/19/18 09/19/18 13:44 15:33 15:43 Temperature 99.2 F Pulse Rate 113 H Pulse Rate [ 98 H 103 H Anterior Bilateral Throughout] Respiratory 16 Rate Respiratory 18 18 Rate [Anterior Bilateral Throughout] Blood Pressure 158/96 O2 Sat by Pulse 91 Oximetry 09/19/18 09/19/18 18:37 18:38 Temperature Pulse Rate 103 H 103 H Pulse Rate [ Anterior Bilateral Throughout] Respiratory Rate Respiratory Rate [Anterior Bilateral Throughout] Blood Pressure 158/96 158/96 O2 Sat by Pulse Oximetry Constitutional: no acute distress, alert Eyes: non-icteric ENT: oropharynx moist Neck: supple, no JVD Ascultation: Right: diminished breath sounds, rhonchi Cardiovascular: regular rate and rhythm Gastrointestinal: normoactive bowel sounds, soft, non-tender Integumentary: normal Extremities: no cyanosis, no edema Neurologic: normal mental status, non-focal exam, pupils equal and round, CN II- XII normal Psychiatric: anxious CBC and BMP: 09/19/18 00:26 09/17/18 09:50 ABG, PT/INR, D-dimer: ABG POC ABG pH 7.505 (7.35-7.45) H 09/15/18 20:41 POC ABG pO2 54 (80-105) L 09/15/18 20:41 POC ABG HCO3 23.1 (22-26 mml/L) 09/15/18 20:41 POC ABG Total CO2 24 (23-27mmol/L) 09/15/18 20:41 POC ABG O2 Sat 91 09/15/18 20:41 PT/INR, D-dimer PT 16.1 Sec. (12.2-14.9) H 09/17/18 15:22 INR 1.21 (0.87-1.13) H 09/17/18 15:22 Abnormal lab findings: Abnormal Labs 09/14/18 09/14/18 09/14/18 08:47 08:47 08:47 WBC 14.2 H Hgb Hct MCV MCH MCHC 35 H Plt Count 617 H Lymph % (Auto) 7.6 L [place] % (Auto) 9.1 H Lymph # 1.1 L [place] # 1.3 H Baso # Seg Neutrophils % 82.7 H Seg Neutrophils # 11.7 H PT INR POC ABG pH POC ABG pO2 VBG pH 7.437 H Sodium 133 L Potassium Chloride 89.2 L BUN Creatinine Glucose 194 H Calcium Albumin 3.4 L Ur Specific [place] 09/14/18 09/15/18 09/15/18 11:51 04:40 04:40 WBC 18.6 H Hgb 11.3 L Hct 33.4 L MCV MCH MCHC Plt Count 472 H Lymph % (Auto) 3.6 L [place] % (Auto) Lymph # 0.7 L [place] # 1.2 H Baso # 0.2 H Seg Neutrophils % 88.8 H Seg Neutrophils # 16.5 H PT INR POC ABG pH POC ABG pO2 VBG pH Sodium 133 L Potassium 3.3 L Chloride 95.5 L BUN 8 L Creatinine Glucose 180 H Calcium 8.1 L Albumin Ur Specific [place] 1.031 H 09/15/18 09/16/18 09/17/18 20:41 08:12 09:50 WBC 17.5 H Hgb Hct MCV 82 L MCH 27 L MCHC Plt Count 643 H Lymph % (Auto) [place] % (Auto) Lymph # [place] # Baso # Seg Neutrophils % Seg Neutrophils # PT INR POC ABG pH 7.505 H POC ABG pO2 54 L VBG pH Sodium 135 L Potassium 3.5 L Chloride 96.1 L BUN 7 L Creatinine 0.6 L Glucose 177 H Calcium 8.2 L Albumin Ur Specific [place] 09/17/18 09/17/18 09/19/18 09:50 15:22 00:26 WBC 14.3 H Hgb 10.9 L Hct 30.5 L MCV 82 L MCH MCHC 36 H Plt Count 520 H Lymph % (Auto) 10.0 L [place] % (Auto) 11.6 H Lymph # [place] # 1.7 H Baso # Seg Neutrophils % 78.0 H Seg Neutrophils # 11.1 H PT 16.1 H INR 1.21 H POC ABG pH POC ABG pO2 VBG pH Sodium 134 L Potassium Chloride 92.2 L BUN 7 L Creatinine 0.6 L Glucose 166 H Calcium Albumin Ur Specific [place]
[2018-09-19] MEDS: TYLENOL PO PRN (19:52)
[2018-09-19] MEDS: LOVENOX SUB-Q SCH (22:16)
[2018-09-19] MEDS: AMBIEN PO PRN (23:30)
[2018-09-20 05:51] LABS: Basophils % (Auto) 0.2 % (0.0-1.8); Eosinophils % (Auto) 0.3 % (0.0-4.3); Hematocrit 32.7 % (35.5-45.6); Hemoglobin 10.9 gm/dl (11.8-15.2); Lymphocytes # (Auto) 1.4 K/mm3 (1.2-5.4); Lymphocytes % (Auto) 7.8 % (13.4-35.0); Mean Corpuscular HGB Conc 33 % (32-34); Mean Corpuscular Volume 83 fl (84-94); Monocytes # (Auto) 1.7 K/mm3 (0.0-0.8); Monocytes % (Auto) 9.9 % (0.0-7.3); Platelet Count 609 K/mm3 (140-440); Red Blood Count 3.94 M/mm3 (3.65-5.03)
[2018-09-20] MEDS: UNASYN/NS 3 GM/100 ML 3 GM/100 ML BAG IV SCH ×3 (05:51→17:18)
[2018-09-20 06:14] LABS: BUN/Creatinine Ratio 11; Blood Urea Nitrogen 8 mg/dL (9-20); Calcium 8.2 mg/dL (8.4-10.2); Hemolysis Index 0
[2018-09-20] MEDS: DUONEB *Not for PRN Use IH SCH ×2 (08:10→14:00)
--- NOTE | 2018-09-20 08:45 | XRay Report ---
AP CHEST: HISTORY: Status post thoracentesis No change is demonstrated in the loculated right pleural fluid collection since 09/18/18. The left lung remains clear. Heart size is within normal limits. IMPRESSION: No change.
--- NOTE | 2018-09-20 08:48 | Progress Note ---
Assessment and Plan Acute respiratory failure, hypoxic, resolving Sepsis due to lung abscess RLL lung abscess, r/o malignancy or other pathological process/TB Moderate pleural effusion,loculated HTN Tobacco use disorder/Nicotine dependence Alcohol abuse disorder -Patient has a complicated pleural space with possibly cavitary lung malignancy. He needs CTSurgery evaluation and VATS proceed EDYTA Discussed with hospitalist service, who will arrange transfer Discussed with the patient and explained the need for CTSurgery evaluation and intervention. RLL lung abscess suspected vs possible malignancy vs other pathological process/TB: AFB pending Moderate pleural effusion, poa, s/p CT guided right thoracentesis but could not be drained more than 10 mL as it was loculated, Fluid appearance cloudy, wbc 5375, rbc 1375, seg 86, lymphocytes 6.0, monocytes 8.0. Glucose and LDH still pending. Likely exudate which is consistent with infection. Pleural fluid cultures show no growth to date HTN, uncontrolled- monitor BP, adjust meds as needed- Currently on amlodipine, lisinopril and metoprolol Tobacco abuse: smoking cessation counselling and nicotine withdrawal precautions Marijuana and alcohol abuse- substance abuse counselling Hypokalemia, repleted and monitor bmp, Subjective Date of service: 09/20/18 Interval history: Follow up for Cavitary lung lesion, complicated pleural space, CAP Seen and examined. 24 hour events reviewed. Discussed with RT/RN. He denies any shortness of breath, has right sided pleuritic chest pain, no nausea or vomiting, no fevers or chills. No diarrhea, no cough Objective - Exam Narrative Exam: GENERAL: well-developed and well-nourished -[place] male lying on bed appeared to be in no discomfort. HEENT: Normocephalic. Atraumatic. No conjunctival congestion or icterus. Patient has moist mucous membranes. NECK: Supple. Trachea midline. CHEST/LUNGS: Coarse breath sounds auscultated mainly on the right side of the lung [place], breathing non labored. No wheezes crackles or rhonchi. HEART/CARDIOVASCULAR: Regular in rate and rhythm. S1 and S2 positive. ABDOMEN: Abdomen is soft, non-tender. Patient has normal bowel sounds. SKIN: There is no rash. Warm and dry. NEURO: No focal motor deficit. Follows command. MUSCULOSKELETAL: No joint effusion or tenderness. EXTRIMITY: No edema, no cyanosis or clubbing. PSYCH: Cooperative. Vital Signs - 12hr 09/19/18 09/19/18 09/19/18 20:51 20:52 21:14 Temperature Pulse Rate Pulse Rate [ Anterior Bilateral Throughout] Pulse Rate [ 104 H Apical] Respiratory 18 18 20 Rate Respiratory Rate [Anterior Bilateral Throughout] Respiratory Rate [Head] Blood Pressure O2 Sat by Pulse 92 Oximetry 09/19/18 09/19/18 09/19/18 21:21 22:16 23:02 Temperature 98.5 F Pulse Rate 104 H 89 Pulse Rate [ Anterior Bilateral Throughout] Pulse Rate [ Apical] Respiratory 18 Rate Respiratory Rate [Anterior Bilateral Throughout] Respiratory 18 Rate [Head] Blood Pressure 154/104 164/105 O2 Sat by Pulse 90 Oximetry 09/20/18 09/20/18 09/20/18 03:57 05:26 08:10 Temperature 99.5 F Pulse Rate 115 H Pulse Rate [ 112 H Anterior Bilateral Throughout] Pulse Rate [ Apical] Respiratory 20 Rate Respiratory 20 Rate [Anterior Bilateral Throughout] Respiratory Rate [Head] Blood Pressure 149/98 O2 Sat by Pulse 92 95 Oximetry 09/20/18 09/20/18 08:15 08:21 Temperature Pulse Rate Pulse Rate [ 110 H Anterior Bilateral Throughout] Pulse Rate [ Apical] Respiratory Rate Respiratory 20 Rate [Anterior Bilateral Throughout] Respiratory Rate [Head] Blood Pressure O2 Sat by Pulse 94 Oximetry Constitutional: no acute distress, alert Eyes: non-icteric ENT: oropharynx moist Neck: supple, no JVD Ascultation: Right: diminished breath sounds, rhonchi Cardiovascular: regular rate and rhythm Gastrointestinal: normoactive bowel sounds, soft, non-tender Integumentary: normal Extremities: no cyanosis, no edema Neurologic: normal mental status, non-focal exam, pupils equal and round, CN II- XII normal Psychiatric: anxious CBC and BMP: 09/20/18 05:06 09/20/18 05:06 ABG, PT/INR, D-dimer: ABG POC ABG pH 7.505 (7.35-7.45) H 09/15/18 20:41 POC ABG pO2 54 (80-105) L 09/15/18 20:41 POC ABG HCO3 23.1 (22-26 mml/L) 09/15/18 20:41 POC ABG Total CO2 24 (23-27mmol/L) 09/15/18 20:41 POC ABG O2 Sat 91 09/15/18 20:41 PT/INR, D-dimer PT 16.1 Sec. (12.2-14.9) H 09/17/18 15:22 INR 1.21 (0.87-1.13) H 09/17/18 15:22 Abnormal lab findings: Abnormal Labs 09/14/18 09/14/18 09/14/18 08:47 08:47 08:47 WBC 14.2 H Hgb Hct MCV MCH MCHC 35 H Plt Count 617 H Lymph % (Auto) 7.6 L [place] % (Auto) 9.1 H Lymph # 1.1 L [place] # 1.3 H Baso # Seg Neutrophils % 82.7 H Seg Neutrophils # 11.7 H PT INR POC ABG pH POC ABG pO2 VBG pH 7.437 H Sodium 133 L Potassium Chlor[place] 89.2 L BUN Creatinine Glucose 194 H Calcium Albumin 3.4 L Ur Specific [place] 09/14/18 09/15/18 09/15/18 11:51 04:40 04:40 WBC 18.6 H Hgb 11.3 L Hct 33.4 L MCV MCH MCHC Plt Count 472 H Lymph % (Auto) 3.6 L [place] % (Auto) Lymph # 0.7 L [place] # 1.2 H Baso # 0.2 H Seg Neutrophils % 88.8 H Seg Neutrophils # 16.5 H PT INR POC ABG pH POC ABG pO2 VBG pH Sodium 133 L Potassium 3.3 L Chloride 95.5 L BUN 8 L Creatinine Glucose 180 H Calcium 8.1 L Albumin Ur Specific [place] 1.031 H 09/15/18 09/16/18 09/17/18 20:41 08:12 09:50 WBC 17.5 H Hgb Hct MCV 82 L MCH 27 L MCHC Plt Count 643 H Lymph % (Auto) [place] % (Auto) Lymph # [place] # Baso # Seg Neutrophils % Seg Neutrophils # PT INR POC ABG pH 7.505 H POC ABG pO2 54 L VBG pH Sodium 135 L Potassium 3.5 L Chloride 96.1 L BUN 7 L Creatinine 0.6 L Glucose 177 H Calcium 8.2 L Albumin Ur Specific [place] 09/17/18 09/17/18 09/19/18 09:50 15:22 00:26 WBC 14.3 H Hgb 10.9 L Hct 30.5 L MCV 82 L MCH MCHC 36 H Plt Count 520 H Lymph % (Auto) 10.0 L [place] % (Auto) 11.6 H Lymph # [place] # 1.7 H Baso # Seg Neutrophils % 78.0 H Seg Neutrophils # 11.1 H PT 16.1 H INR 1.21 H POC ABG pH POC ABG pO2 VBG pH Sodium 134 L Potassium [place] 92.2 L BUN 7 L Creatinine 0.6 L Glucose 166 H Calcium Albumin Ur Specific [place] 09/20/18 09/20/18 05:06 05:06 WBC 17.7 H Hgb 10.9 L Hct 32.7 L MCV 83 L MCH MCHC Plt Count 609 H Lymph % (Auto) 7.8 L [place] % (Auto) 9.9 H Lymph # [place] # 1.7 H Baso # Seg Neutrophils % 81.8 H Seg Neutrophils # 14.4 H PT INR POC ABG pH POC ABG pO2 VBG pH Sodium 135 L Potassium 3.4 L Chloride 92.0 L BUN 8 L Creatinine 0.7 L Glucose 109 H Calcium 8.2 L Albumin Ur Specific [place]
[2018-09-20] MEDS: LOPRESSOR PO SCH (09:34)
[2018-09-20] MEDS: PEPCID PO SCH (09:35)
[2018-09-20] MEDS: NORVASC PO SCH (09:35)
[2018-09-20] MEDS: ZESTRIL PO SCH (09:35)
[2018-09-20] MEDS: NORCO 5/325 PO PRN (12:41)
--- NOTE | 2018-09-20 13:30 | Progress Note ---
Assessment and Plan Assessment and plan: Patient is a 67 yo man with a history of marijuana abuse, prior cocaine use in the past, hypertension but not on medication and who hasn't seen a physician in years who presented to [facility] on 09/14/18 for fever, cough and right sided chest pains. CXR showed right lower lobe opacity concerning for pneumonia or abscess. CT chest showed irregular marginated thick walled cavitary lesion in lateral right lower lobe containing fluid level and air bubbles, that may represent an abscess, differential includes cavitary neoplasm. Moderate right pleural effusion posteriorly and superiorly. Adjacent right lower lobe consolidation might be compressive atelectasis and/or pneumonia. Nonspecific slight adenopath y in the right hilum may be reactive and/or neoplastic. * 09/14/18 CT chest w/ contrast IMPRESSION: Irregularly marginated thick walled cavitary lesion in lateral right lower lobe, containing fluid level and air bubbles, may represent lung abscess. Differential includes cavitary neoplasm Moderate right pleural effusion posteriorly and superiorly. Adjacent right lower lobe consolidation may be compressive atelectasis and/or pneumonia Nonspecific slight adenopathy in the right hilum may be reactive and/or neoplastic Upper lobe pulmonary emphysema Nonspecific nodular anterior pleural calcifications in both upper lobes * 09/18/18 s/p Right sided thoracentesis * 09/20/18 pCXR IMPRESSION: No change. Acute hypoxic respiratory failure, improving but still symptomatic: continue to wean off 2liters O2 Sepsis due to lung abscess: iv abx RLL lung abscess suspected vs possible malignancy vs other pathological process/TB: AFB pending, Pulmonology following Moderate pleural effusion, poa, s/p CT guided right thoracentesis but could not be drained more than 10 mL as it was loculated, Fluid appearance cloudy, wbc 5375, rbc 1375, seg 86, lymphocytes 6.0, monocytes 8.0. Glucose and LDH still pending. Likely exudate which is consistent with infection. Pleural fluid cultures show no growth to date HTN, uncontrolled- monitor BP, adjust meds as needed- Currently on amlodipine, lisinopril and metoprolol Tobacco abuse: disability counselor on stopping Marijuana and alcohol abuse- counseled for cessation Hypokalemia, repleted and monitor bmp, D/w Optician, Dr. Valle, who recommends patient be transferred for Thoracic surgeon evaluation, not available here. I d/w and she wants him transferred to [facility]. So, at 2:05pm, I called [facility] transfer center and spoke with Kaden-->no beds at [facility]. Then I called [facility] and spoke with Amparo and gave her all the clinical information including vitals. She will obtain the face sheet and call me back. CCT 32 minutes History Interval history: Patient was seen and examined. Follow-up on current diagnosis right lung cavity. No new issues reported to me. Patient denies any chest pain, shortness breath, nausea/vomiting or severe headaches. Imaging, nursing note, chart, labs and old chart reviewed. Discussed with patient. Hospitalist Physical - Physical exam Narrative exam: Gen: WDWN, NAD, Awake, Alert, Orientated HEENT: NCAT, EOMI, PERRL, OP Clear Neck: supple, no adenopathy, no thyromegaly, no JVD CVS/Heart: regular tachycardia, normal S1S2, pulses present bilaterally Chest/Lungs: diminished bs right base>left base Symmetrical chest expansion, good air entry bilaterally GI/Abdomen: soft, NTND, good bowel sounds, no guarding or rebound /Bladder: no suprapubic tenderness, no CVA or paraspinal tenderness Extermity/Skin: no c/c/e, no obvious rash MSK: FROM x 4 Neuro: CN 2-12 grossly intact, no new focal deficits Psych: calm - Constitutional Vitals: Temp Pulse Resp BP Pulse Ox 99.2 F 115 H 16 149/96 96 09/20/18 08:29 09/20/18 09:35 09/20/18 08:29 09/20/18 09:35 09/20/18 08:29 Results - Labs CBC & Chem 7: 09/20/18 05:06 09/20/18 05:06 Labs: Laboratory Last Values WBC 17.7 K/mm3 (4.5-11.0) H 09/20/18 05:06 RBC 3.94 M/mm3 (3.65-5.03) 09/20/18 05:06 Hgb 10.9 gm/dl (11.8-15.2) L 09/20/18 05:06 Hct 32.7 % (35.5-45.6) L 09/20/18 05:06 MCV 83 fl (84-94) L 09/20/18 05:06 MCH 28 pg (28-32) 09/20/18 05:06 MCHC 33 % (32-34) 09/20/18 05:06 RDW 14.0 % (13.2-15.2) 09/20/18 05:06 Plt Count 609 K/mm3 (140-440) H 09/20/18 05:06 Lymph % (Auto) 7.8 % (13.4-35.0) L 09/20/18 05:06 [place] % (Auto) 9.9 % (0.0-7.3) H 09/20/18 05:06 Eos % (Auto) 0.3 % (0.0-4.3) 09/20/18 05:06 Baso % (Auto) 0.2 % (0.0-1.8) 09/20/18 05:06 Lymph # 1.4 K/mm3 (1.2-5.4) 09/20/18 05:06 [place] # 1.7 K/mm3 (0.0-0.8) H 09/20/18 05:06 Eos # 0.0 K/mm3 (0.0-0.4) 09/20/18 05:06 Baso # 0.0 K/mm3 (0.0-0.1) 09/20/18 05:06 Seg Neutrophils % 81.8 % (40.0-70.0) H 09/20/18 05:06 Seg Neutrophils # 14.4 K/mm3 (1.8-7.7) H 09/20/18 05:06 PT 16.1 Sec. (12.2-14.9) H 09/17/18 15:22 INR 1.21 (0.87-1.13) H 09/17/18 15:22 POC ABG pH 7.505 (7.35-7.45) H 09/15/18 20:41 POC ABG pO2 54 (80-105) L 09/15/18 20:41 POC ABG HCO3 23.1 (22-26 mml/L) 09/15/18 20:41 POC ABG Total CO2 24 (23-27mmol/L) 09/15/18 20:41 POC ABG O2 Sat 91 09/15/18 20:41 POC ABG Base Excess 0 ((-2) - (+3)mmol/L) 09/15/18 20:41 VBG pH 7.437 (7.320-7.420) H 09/14/18 08:47 21 % 09/15/18 20:41 Sodium 135 mmol/L (137-145) L 09/20/18 05:06 Potassium 3.4 mmol/L (3.6-5.0) L 09/20/18 05:06 Chloride 92.0 mmol/L (98-107) L 09/20/18 05:06 Carbon Dioxide 30 mmol/L (22-30) 09/20/18 05:06 16 mmol/L 09/20/18 05:06 BUN 8 mg/dL (9-20) L 09/20/18 05:06 0.7 mg/dL (0.8-1.5) L 09/20/18 05:06 Estimated GFR > 60 ml/min 09/20/18 05:06 11 % 09/20/18 05:06 Glucose 109 mg/dL (75-100) H 09/20/18 05:06 5.8 % (4-6) 09/18/18 04:54 Lactic Acid 1.60 mmol/L (0.7-2.0) 09/14/18 13:18 Calcium 8.2 mg/dL (8.4-10.2) L 09/20/18 05:06 0.40 mg/dL (0.1-1.2) 09/14/18 08:47 AST 16 units/L (5-40) 09/14/18 08:47 ALT 11 units/L (7-56) 09/14/18 08:47 75 units/L (35-129) 09/14/18 08:47 8.2 g/dL (6.3-8.2) 09/14/18 08:47 3.4 g/dL (3.9-5) L 09/14/18 08:47 0.7 % 09/14/18 08:47 Straw (Yellow) 09/14/18 11:51 Clear (Clear) 09/14/18 11:51 6.0 (5.0-7.0) 09/14/18 11:51 Ur Specific [place]ana 1.031 (1.003-1.030) H 09/14/18 11:51 <15 mg/dl mg/dL (Negative) 09/14/18 11:51 Neg mg/dL (Negative) 09/14/18 11:51 Neg mg/dL (Negative) 09/14/18 11:51 Mod (Negative) 09/14/18 11:51 Neg (Negative) 09/14/18 11:51 Neg (Negative) 09/14/18 11:51 < 2.0 mg/dL (<2.0) 09/14/18 11:51 Ur Leukocyte Esterase Neg (Negative) 09/14/18 11:51 1.0 /HPF (0.0-6.0) 09/14/18 11:51 1.0 /HPF (0.0-6.0) 09/14/18 11:51 Fluid Type Pleural 09/18/18 10:00 Fluid Color Yellow 09/18/18 10:00 Fluid Appearance Cloudy 09/18/18 10:00 Fluid WBC 5375 /mm3 09/18/18 10:00 Fluid RBC 1375 /mm3 09/18/18 10:00 Fluid Seg Neutrophils 86.0 % 09/18/18 10:00 Fluid Lymphocytes 6.0 % 09/18/18 10:00 Fluid Monocytes 8.0 % 09/18/18 10:00 HIV 1&2 Antibody Rapid Non react (Non React) 09/16/18 08:12 Non react (Non React) 09/16/18 08:12 Active Medications - Current Medications Current Medications: Generic Name Dose Route Start Last Admin Trade Name Freq PRN Reason Stop Dose Admin Acetaminophen 650 mg 09/14/18 10:34 09/19/18 19:52 Tylenol PO 650 mg Q4H PRN Administration Pain MILD(1-3)/Fever >100.5/MATIAS Acetaminophen/Hydrocodone Bitart 2 each 09/14/18 10:34 09/20/18 12:41 Keyser 5/325 PO 2 each Q6H PRN Administration Pain, Moderate (4-6) Al Hydrox/Mg Hydrox/Simethicone 30 ml 09/14/18 10:34 Alum-Mag Hydrox-Simeth 198-630-82cg/5ml PO Q4H PRN Indigestion Albuterol 2.5 mg 09/17/18 22:03 Proventil IH Q4HRT PRN Shortness Of Breath Albuterol/Ipratropium 1 ampul 09/18/18 08:00 09/20/18 08:10 Duoneb *Not For Prn Use* IH 1 ampul TIDRT ELO Administration Amlodipine Besylate 10 mg 09/16/18 15:00 09/20/18 09:35 Norvasc PO 10 mg DAILY ELO Administration Enoxaparin Sodium 40 mg 09/14/18 22:00 09/19/18 22:16 Lovenox SUB-Q 40 mg QDAY@2200 ELO Administration Famotidine 20 mg 09/14/18 22:00 09/20/18 09:35 Pepcid PO 20 mg BID ELO Administration Hydralazine HCl 10 mg 09/15/18 01:51 09/18/18 05:24 Apresoline IV 10 mg Q4H PRN Administration Hypertension Ampicillin Sodium/Sulbactam Sodium 3 gm in 100 mls @ 200 mls/hr 09/17/18 22:00 09/20/18 09:36 Unasyn/Ns 3 Gm/100 Ml IV 200 mls/hr Q6H ELO Administration Protocol Lisinopril 10 mg 09/19/18 15:47 09/20/18 09:35 Zestril PO 10 mg BID ELO Administration Metoprolol Tartrate 50 mg 09/19/18 16:00 09/20/18 09:34 Lopressor PO 50 mg BID EOL Administration Ondansetron HCl 4 mg 09/14/18 10:34 Zofran IV Q8H PRN N/V unrelieved by Reglan Potassium Chloride 40 meq 09/20/18 14:24 K-Dur PO 09/20/18 14:25 ONCE ONE Zolpidem Tartrate 5 mg 09/15/18 20:04 09/19/18 23:30 Ambien PO 5 mg QHS PRN Administration Sleep
[2018-09-20] MEDS ORDERED: K-DUR PO ONE (14:24)
--- NOTE | 2018-09-20 14:59 | Discharge Summary ---
Providers - Providers Date of Admission: 09/14/18 10:35 Date of discharge: 09/20/18 Attending physician: MORGAN LLOYD 09/14/18 12:30 Consult to Physician [CONS] Routine Comment: Consulting Provider: DELMA HUNT Physician Instructions: Reason For Exam: lung abscess 09/14/18 12:31 Consult to Physician [CONS] Routine Comment: Consulting Provider: DAVID FRANCOIS Physician Instructions: Reason For Exam: lung abscess [facility] Hospitalization Condition: Stable Hospital course: Patient is a 67 yo man with a history of marijuana abuse, prior cocaine use in the past, hypertension but not on medication and who hasn't seen a physician in years who presented to [facility] on 09/14/18 for fever, cough and right sided chest pains. CXR showed right lower lobe opacity concerning for pneumonia or abscess. CT chest showed irregular marginated thick walled cavitary lesion in lateral right lower lobe containing fluid level and air bubbles, that may represent an abscess, differential includes cavitary neoplasm. Moderate right pleural effusion posteriorly and superiorly. Adjacent right lower lobe consolidation might be compressive atelectasis and/or pneumonia. Nonspecific slight adenopathy in the right hilum may be reactive and/or neoplastic. * 09/14/18 CT chest w/ contrast IMPRESSION: Irregularly marginated thick walled cavitary lesion in lateral right lower lobe, containing fluid level and air bubbles, may represent lung abscess. Differential includes cavitary neoplasm Moderate right pleural effusion posteriorly and superiorly. Adjacent right lower lobe consolidation may be compressive atelectasis and/or pneumonia Nonspecific slight adenopathy in the right hilum may be reactive and/or neoplastic Upper lobe pulmonary emphysema Nonspecific nodular anterior pleural calcifications in both upper lobes * 09/18/18 s/p Right sided thoracentesis * 09/20/18 pCXR IMPRESSION: No change. Acute hypoxic respiratory failure, improving but still symptomatic: continue to wean off 2liters O2 Sepsis due to lung abscess: iv abx RLL lung abscess suspected vs possible malignancy vs other pathological process/TB: AFB pending, Pulmonology following Moderate pleural effusion, poa, s/p CT guided right thoracentesis but could not be drained more than 10 mL as it was loculated, Fluid appearance cloudy, wbc 5375, rbc 1375, seg 86, lymphocytes 6.0, monocytes 8.0. Glucose and LDH still pending. Likely exudate which is consistent with infection. Pleural fluid cultures show no growth to date HTN, uncontrolled- monitor BP, adjust meds as needed- Currently on amlodipine, lisinopril and metoprolol Tobacco abuse: service counselor on stopping Marijuana and alcohol abuse- counseled for cessation Hypokalemia, repleted and monitor bmp, D/w Guest Services Representative, Dr. Valle, who recommends patient be transferred for Thoracic surgeon evaluation, not available here. I d/w and she wants him t ransferred to [facility]. So, at 2:05pm, I called [facility] transfer center and spoke with Kaden-->no beds at [facility]. Then I called [facility] and spoke with Amparo and gave her all the clinical information including vitals. She will obtain the face sheet and call me back. Amparo from [facility] transfer elwell called me back with Thoracic surgeon, Dr. Black. He has accepted patient for transfer to [facility] under his care. Amparo is trying to find respiratory isolation bed to bring patient over tonight. Next, I called the nurse and charge nurse to get CD copy of all imaging to go with patient. Disposition: [id number]/TX-[id number] ANOTHER TYPE HLTHCARE Time spent for discharge: 36 minutes Core Measure Documentation - Palliative Care Palliative Care/ Comfort Measures: Not Applicable - Core Measures Any of the following diagnoses?: none - VTE Discharge Requirements Deep Vein Thrombosis/Pulmonary Embolism Present on Admission: No Has pt received <5 days of overlap therapy or INR<2.0: No Anticoagulant overlap therapy prescribed at discharge: No Contraindication No Overlap Therapy order at DC: Not Indicated Exam - Physical Exam Narrative exam: Gen: WDWN, NAD, Awake, Alert, Orientated HEENT: NCAT, EOMI, PERRL, OP Clear Neck: supple, no adenopathy, no thyromegaly, no JVD CVS/Heart: regular tachycardia, normal S1S2, pulses present bilaterally Chest/Lungs: diminished bs right base>left base Symmetrical chest expansion, good air entry bilaterally GI/Abdomen: soft, NTND, good bowel sounds, no guarding or rebound /Bladder: no suprapubic tenderness, no CVA or paraspinal tenderness Extermity/Skin: no c/c/e, no obvious rash MSK: FROM x 4 Neuro: CN 2-12 grossly intact, no new focal deficits Psych: calm - Constitutional Vitals: Temp Pulse Resp BP Pulse Ox 99.2 F 112 H 20 149/96 96 09/20/18 08:29 09/20/18 14:10 09/20/18 14:10 09/20/18 09:35 09/20/18 08:29 Plan Activity: other (no strenous activity) Diet: regular Special Instructions: smoking cessation Additional Instructions: To [facility] under Dr. Black Follow up with: MIGUELANGEL,SIDE,MEDICAL [Other] - 3-5 Days
--- NOTE | 2018-09-20 15:00 | Progress Note ---
Assessment and Plan Cultures: 09/14/18 Urine culture: no growth to date 09/14/18 Sputum: moderate growth of usual respiratory adrianne 09/14/09: Blood: no growth 09/17/18: Sputum: >10 squamous cells - contaminated 09/18/18: Body fluid culture: no growth to date Assessment: 67-year-old male PMH HTN, not on meds, has not been to a doctor in many years, w ho abuses alcohol and tobacco and presented to the ER on 09/14/18 with complaints of cough, fever, SOB and right-sided chest pain. Found to have a right lower lobe lung cavitary lesion. 1) Sepsis: Still fever. Persistent leukocytosis. Etiology R lung abscess/pneumonia. HIV nonreactive 2) RLL cavitary lesion with adjacent consolidation and moderate pleural effusion. Differential diagnosis includes lung abscess/aspiration pneumonia vs. cavitary neoplasm. TB less likely. No h/o of overseas travel or TB contacts. s/p thoracentesis 09/18 10cc of fluid aspirated. Fluid appearance cloudy, wbc 5375, rbc 1375, seg 86, lymphocytes 6.0, monocytes 8.0. Glucose and LDH pending. Initial scan of the chest demonstrates loculated complex right pleural fluid collection, Likely excudate which is consistent with infection/malignancy. Pleural fluid cultures show no growth to date. Repeat CXR loculated right pleural effusion. 3) h/o etoh and tobacco abuse Plan: -agree with transferring to tertiary facility as he may need CT surgery evaluation/VATS as pleural effusion is complex with multiple loculations -follow-up Quantiferon -continue Unasyn 3gm IV every 6 hours D4 -follow-up AFB culture X3 -continue airborne precautions until TB is ruled out. Will follow Lata Ashley MD Infectious Diseases [employer] Software Engineer [facility] M [phone] O [phone] Subjective Date of service: 09/20/18 Principal diagnosis: pleural effusion Interval history: Patient feels ok but still fever. Denies N/V/D and chest pain. at bedside. ROS: as above rest neg Objective - Exam Narrative Exam: General appearance: alert in NAD Eyes: anicteric sclerae, moist conjunctivae; no lid-lag; PERRLA HENT: Atraumatic; oropharynx clear with moist mucous membranes and no mucosal u lcerations/no oral thrush; normal hard and soft palate. Normal external ears. Neck: Trachea midline; supple, no thyromegaly or lymphadenopathy Lungs: Decreased BS Right base. CV: RRR, no murmurs Abdomen: Soft, non-tender; no masses or hepatosplenomegaly Extremities: No peripheral edema or extremity lymphadenopathy Skin: Normal temperature, turgor and texture; no rash, ulcers or subcutaneous nodules Psych: Appropriate affect, alert and oriented to person, place and time. Neuro: alert and oriented x 3. Moving all extermities. Non-focal. Lines: No CVL / PICC - Constitutional Vitals: Vital Signs Temp Pulse Resp BP Pulse Ox 99.2 F 112 H 20 149/96 96 09/20/18 08:29 09/20/18 14:10 09/20/18 14:10 09/20/18 09:35 09/20/18 08:29 Temperature -Last 24 Hours Temperature 99.2 F Temperature 99.5 F Temperature 98.5 F Temperature 100.4 F Temperature 100.0 F - Labs CBC & Chem 7: 09/20/18 05:06 09/20/18 05:06 Labs: Abnormal lab results 09/20/18 09/20/18 Range/Units 05:06 05:06 WBC 17.7 H (4.5-11.0) K/mm3 Hgb 10.9 L (11.8-15.2) gm/dl Hct 32.7 L (35.5-45.6) % MCV 83 L (84-94) fl Plt Count 609 H (140-440) K/mm3 Lymph % (Auto) 7.8 L (13.4-35.0) % [place] % (Auto) 9.9 H (0.0-7.3) % [place] # 1.7 H (0.0-0.8) K/mm3 Seg Neutrophils % 81.8 H (40.0-70.0) % Seg Neutrophils # 14.4 H (1.8-7.7) K/mm3 Sodium 135 L (137-145) mmol/L Potassium 3.4 L (3.6-5.0) mmol/L Chloride 92.0 L (98-107) mmol/L BUN 8 L (9-20) mg/dL Creatinine 0.7 L (0.8-1.5) mg/dL Glucose 109 H (75-100) mg/dL Calcium 8.2 L (8.4-10.2) mg/dL
[2018-09-20 16:16] VITALS: BP 142/96
[2018-09-20] MEDS ORDERED: K-DUR PO NR (18:00)
[2018-09-24 09:06] LABS: LDH,Body Fluid 2957; pH, Body Fluid 7.9
== END 2018-09-20 17:55 | disposition short-term general hospital (02) | DRG 871 ==
LOC: ED 08:28 → 4A 10:35
PROVIDERS: ADMIT Internal Medicine; ATTEND Internal Medicine
PROC: 4A033R1 Measurement of Arterial Saturation, Peripheral, Percutaneous Approach (ICD-10-PCS; 2018-09-15)
PROC: 0W993ZZ Drainage of Right Pleural Cavity, Percutaneous Approach (ICD-10-PCS; principal; 2018-09-18)
DX: A41.9 Sepsis, unspecified organism (principal); J96.01 Acute respiratory failure with hypoxia; J85.1 Abscess of lung with pneumonia; J90 Pleural effusion, not elsewhere classified; F17.200 Nicotine dependence, unspecified, uncomplicated; E87.6 Hypokalemia; F10.10 Alcohol abuse, uncomplicated; Y90.9 Presence of alcohol in blood, level not specified; Z80.9 Family history of malignant neoplasm, unspecified; Z71.6 Tobacco abuse counseling; Z71.41 Alcohol abuse counseling and surveillance of alcoholic; Z71.51 Drug abuse counseling and surveillance of drug abuser
CPT/HCPCS: 32555; 36415; 36600; 71045; 71260; 80048; 80053; 81001; 82140; 82803; 82805; 82947; 83036; 83605; 84160; 85025; 85027; 85610; 87040; 87070; 87086; 87116; 87205; 87806; 88112; 88305; 88312; 88341; 88342; 89051; 93005; 93010; 94640; 94760; G0378; C1729; J0295; J0360; J0456; J0696; J1650; J2270; J2405; J2543; J3370; J7030; J7040; J7042; J7050; Q9967

== ENCOUNTER 2020-06-01 13:49 | Emergency (ER) | payer MEDICARE, OTHER ==
--- NOTE | 2020-06-01 14:06 | Event Note ---
ED Screening Note ED Screening Note: pt presents for a headache for a couple of days states that he bit his tongue but does not remember doing it no hx of seizures states he was previously on HTN medication no CP, SOB, numbness, weakness, vision changes This initial assessment/diagnostic orders/clinical plan/treatment(s) is/are subject to change based on patients health status, clinical progression and re- assessment by fellow clinical providers in the ED. Further treatment and workup at subsequent clinical providers discretion. Patient/guardian urged not to elope from the ED as their condition may be serious if not clinically assessed and managed. Initial orders include: labs, CT head, EKG
[2020-06-01] MEDS ORDERED: LORazepam 2 MG/ML VIAL IM ONE (14:33)
[2020-06-01 14:37] LABS: Basophils % (Auto) 0.2 % (0.0-1.8); Hemoglobin 13.8 gm/dl (11.8-15.2); Lymphocytes # (Auto) 0.5 K/mm3 (1.2-5.4); Lymphocytes % (Auto) 3.6 % (13.4-35.0); Mean Corpuscular HGB Conc 34 % (32-34); Mean Corpuscular Volume 89 fl (84-94); Monocytes # (Auto) 1.2 K/mm3 (0.0-0.8); Monocytes % (Auto) 7.9 % (0.0-7.3); Platelet Count 188 K/mm3 (140-440); Red Blood Count 4.61 M/mm3 (3.65-5.03); Red Cell Distribution Width 16.9 % (13.2-15.2)
[2020-06-01 14:52] LABS: Alanine Aminotransferase 18 units/L (7-56); Albumin 4.8 g/dL (3.9-5); BUN/Creatinine Ratio 15; Blood Urea Nitrogen 12 mg/dL (9-20); Calcium 9.2 mg/dL (8.4-10.2); Hemolysis Index 18
[2020-06-01] MEDS ORDERED: hydrALAZINE 20 MG/1 ML INJ IV ONE (15:17)
[2020-06-01 16:12] LABS: INR 0.93 (0.87-1.13)
[2020-06-01 16:13] LABS: Partial Thromboplastin Time 24.2 Sec. (24.2-36.6)
--- NOTE | 2020-06-01 16:18 | Cat Scan Report ---
CT HEAD WITHOUT CONTRAST HISTORY: HTN urgency, headache, bit to tongue. TECHNIQUE: Axial imaging performed from the skull apex through the skull base without the use of con trast. All CT scans at this location are performed using CT dose reduction for ALARA by means of aut omated exposure control. COMPARISON: None FINDINGS: Parenchyma: No acute intracranial hemorrhage or parenchymal abnormality.. Mild hypoattenuation thro ughout the white matter is noted and consistent with chronic microvascular ischemic disease. Ventricles: There is mild diffuse brain atrophy with commensurate ventricular enlargement which is l ikely age appropriate. Soft tissues: Soft tissues including the orbits appear normal. Bones: No acute osseous abnormality. Sinuses: Sinuses and mastoid air cells are clear. IMPRESSION: No acute abnormality. Signer Name: Benoit Ortega Jr, MD Signed: 06/01/2020 4:12 PM Workstation Name: [id number]
[2020-06-01] MEDS ORDERED: levETIRAcetam 500 MG/5 ML ORAL LIQD PO ONE (16:58)
--- NOTE | 2020-06-01 17:35 | Emergency Department Report ---
ED General Adult HPI - General Chief complaint: Headache Stated complaint: HTN /HYPERTENSION Time Seen by Provider: 06/01/20 14:01 Source: police, EMS Mode of arrival: Wheelchair Limitations: No Limitations - History of Present Illness Initial comments: The patient presents to the emergency department with a chief complaint of a headache located in the frontal aspect of the same for the last 4 days. Patient also has elevated blood pressure in triage and states he has not been on blood pressure medication in quite some time. Patient states that he has noticed that he has bite hernández on his tongue which started couple days ago he denies a history of seizures. While patient was being interviewed in triage she began to have seizure activity. Prior to the patient having a seizure he denied chest pain, shortness breath, or headache. -: Sudden Severity scale (0 -10): 2 Quality: other (throbbing) Consistency: constant Improves with: none Worsens with: none Associated Symptoms: denies other symptoms Treatments Prior to Arrival: none - Related Data Previous Rx's Medication Instructions Recorded Last Taken Type ALBUTEROL NEB's [Proventil 0.083% 2.5 mg IH Q4HRT PRN #30 nebu 09/20/18 Unknown Rx NEBS] Acetaminophen [Acetaminophen TAB] 650 mg PO Q4H PRN #30 tablet 09/20/18 Unknown Rx Famotidine [Pepcid] 20 mg PO BID #15 tablet 09/20/18 Unknown Rx HYDROcodone/APAP 5-325 [[place] 2 each PO Q6H PRN #10 tablet 09/20/18 Unknown Rx 5-325 mg TAB] Ipratropium/Albuterol Sulfate 1 ampul IH TIDRT #30 ampul.neb 09/20/18 Unknown Rx [DUONEB *Not for PRN Use*] Metoprolol [Lopressor TAB] 50 mg PO BID #60 tablet 09/20/18 Unknown Rx amLODIPine 10 mg PO DAILY #30 tablet 09/20/18 Unknown Rx lisinopriL [Zestril TAB] 10 mg PO BID #60 tablet 09/20/18 Unknown Rx amLODIPine [Norvasc] 10 mg PO DAILY #30 tab 06/01/20 Unknown Rx hydroCHLOROthiazide [Hctz] 12.5 mg PO QDAY #30 capsule 06/01/20 Unknown Rx levETIRAcetam [Keppra TAB] 500 mg PO BID #60 tablet 06/01/20 Unknown Rx Allergies Allergy/AdvReac Type Severity Reaction Status Date / Time No Known Allergies Allergy Verified 09/14/18 08:30 ED Review of Systems ROS: Stated complaint: HTN /HYPERTENSION Other details as noted in HPI Comment: All other systems reviewed and negative Constitutional: denies: chills, fever Eyes: denies: eye pain, eye discharge, vision change ENT: denies: ear pain, throat pain Respiratory: denies: cough, shortness of breath, wheezing Cardiovascular: denies: chest pain, palpitations Endocrine: no symptoms reported Gastrointestinal: denies: abdominal pain, nausea, diarrhea Genitourinary: denies: urgency, dysuria Musculoskeletal: denies: back pain, joint swelling, arthralgia Skin: denies: rash, lesions Neurological: denies: headache, weakness, paresthesias Psychiatric: denies: anxiety, depression Hematological/Lymphatic: denies: easy bleeding, easy bruising ED Past Medical Hx - Past Medical History Previous Medical History?: Yes Hx Hypertension: Yes - Surgical History Past Surgical History?: Yes Additional Surgical History: right foot surgery - Social History Smoking Status: Current Every Day Smoker - Medications Home Medications: Home Medications Medication Instructions Recorded Confirmed Last Taken Type ALBUTEROL NEB's [Proventil 0.083% 2.5 mg IH Q4HRT PRN #30 nebu 09/20/18 Unknown Rx NEBS] Acetaminophen [Acetaminophen TAB] 650 mg PO Q4H PRN #30 tablet 09/20/18 Unknown Rx Famotidine [Pepcid] 20 mg PO BID #15 tablet 09/20/18 Unknown Rx HYDROcodone/APAP 5-325 [[place] 2 each PO Q6H PRN #10 tablet 09/20/18 Unknown Rx 5-325 mg TAB] Ipratropium/Albuterol Sulfate 1 ampul IH TIDRT #30 ampul.neb 09/20/18 Unknown Rx [DUONEB *Not for PRN Use*] Metoprolol [Lopressor TAB] 50 mg PO BID #60 tablet 09/20/18 Unknown Rx amLODIPine 10 mg PO DAILY #30 tablet 09/20/18 Unknown Rx lisinopriL [Zestril TAB] 10 mg PO BID #60 tablet 09/20/18 Unknown Rx amLODIPine [Norvasc] 10 mg PO DAILY #30 tab 06/01/20 Unknown Rx hydroCHLOROthiazide [Hctz] 12.5 mg PO QDAY #30 capsule 06/01/20 Unknown Rx levETIRAcetam [Keppra TAB] 500 mg PO BID #60 tablet 06/01/20 Unknown Rx ED Physical Exam - General Limitations: No Limitations General appearance: alert, in no apparent distress - Head Head exam: Present: atraumatic, normocephalic - Eye Eye exam: Present: normal appearance, PERRL, EOMI - ENT ENT exam: Present: mucous membranes moist - Neck Neck exam: Present: normal inspection - Respiratory Respiratory exam: Present: normal lung sounds bilaterally. Absent: respiratory distress - Cardiovascular Cardiovascular Exam: Present: normal rhythm, tachycardia. Absent: systolic murmur, diastolic murmur, rubs, gallop - GI/Abdominal GI/Abdominal exam: Present: soft, normal bowel sounds. Absent: distended, tenderness - Rectal Rectal exam: Present: deferred - Extremities Exam Extremities exam: Present: normal inspection - Back Exam Back exam: Present: normal inspection - Neurological Exam Neurological exam: Present: alert, oriented X3, CN II-XII intact. Absent: motor sensory deficit - Psychiatric Psychiatric exam: Present: normal affect, normal mood - Skin Skin exam: Present: warm, dry, intact, normal color. Absent: rash ED Course Vital Signs 06/01/20 06/01/20 06/01/20 14:03 14:57 15:01 Temperature 98.0 F Pulse Rate 110 H 142 H 110 H Respiratory 16 24 23 Rate Blood Pressure 206/117 Blood Pressure 174/114 [Right] O2 Sat by Pulse 98 Oximetry 06/01/20 06/01/20 06/01/20 15:15 15:30 15:45 Temperature Pulse Rate 110 H 113 H Respiratory 25 H 28 H Rate Blood Pressure 200/124 186/104 203/98 Blood Pressure [Right] O2 Sat by Pulse 97 97 Oximetry ED Medical Decision Making - Lab Data Result diagrams: 06/01/20 14:17 06/01/20 14:17 Lab Results 06/01/20 06/01/20 06/01/20 Range/Units 14:01 14:17 14:17 WBC 14.7 H (4.5-11.0) K/mm3 RBC 4.61 (3.65-5.03) M/mm3 Hgb 13.8 (11.8-15.2) gm/dl Hct 41.0 (35.5-45.6) % MCV 89 (84-94) fl MCH 30 (28-32) pg MCHC 34 (32-34) % RDW 16.9 H (13.2-15.2) % Plt Count 188 (140-440) K/mm3 Lymph % (Auto) 3.6 L (13.4-35.0) % [place] % (Auto) 7.9 H (0.0-7.3) % Eos % (Auto) 0.0 (0.0-4.3) % Baso % (Auto) 0.2 (0.0-1.8) % Lymph # (Auto) 0.5 L (1.2-5.4) K/mm3 [place] # (Auto) 1.2 H (0.0-0.8) K/mm3 Eos # (Auto) 0.0 (0.0-0.4) K/mm3 Baso # (Auto) 0.0 (0.0-0.1) K/mm3 Seg Neutrophils % 88.3 H (40.0-70.0) % Seg Neutrophils # 13.0 H (1.8-7.7) K/mm3 PT (12.2-14.9) Sec. INR (0.87-1.13) APTT (24.2-36.6) Sec. Sodium 139 (137-145) mmol/L Potassium 4.0 (3.6-5.0) mmol/L Chloride 96.9 L (98-107) mmol/L Carbon Dioxide 22 (22-30) mmol/L Anion Gap 24 mmol/L BUN 12 (9-20) mg/dL Creatinine 0.8 (0.8-1.3) mg/dL Estimated GFR > 60 ml/min BUN/Creatinine Ratio 15 % Glucose 167 H (75-100) mg/dL POC Glucose 178 H (70-105) mg/dL Calcium 9.2 (8.4-10.2) mg/dL Total Bilirubin 1.30 H (0.1-1.2) mg/dL AST 62 H (5-40) units/L ALT 18 (7-56) units/L Alkaline Phosphatase 105 (35-129) units/L Troponin T < 0.010 (0.00-0.029) ng/mL Total Protein 7.4 (6.3-8.2) g/dL Albumin 4.8 (3.9-5) g/dL Albumin/Globulin Ratio 1.8 % Salicylates (2.8-20.0) mg/dL Acetaminophen (10.0-30.0) ug/mL Plasma/Serum Alcohol (0-0.07) % 06/01/20 06/01/20 06/01/20 Range/Units 15:46 15:46 15:46 WBC (4.5-11.0) K/mm3 RBC (3.65-5.03) M/mm3 Hgb (11.8-15.2) gm/dl Hct (35.5-45.6) % MCV (84-94) fl MCH (28-32) pg MCHC (32-34) % RDW (13.2-15.2) % Plt Count (140-440) K/mm3 Lymph % (Auto) (13.4-35.0) % [place] % (Auto) (0.0-7.3) % Eos % (Auto) (0.0-4.3) % Baso % (Auto) (0.0-1.8) % Lymph # (Auto) (1.2-5.4) K/mm3 [place] # (Auto) (0.0-0.8) K/mm3 Eos # (Auto) (0.0-0.4) K/mm3 Baso # (Auto) (0.0-0.1) K/mm3 Seg Neutrophils % (40.0-70.0) % Seg Neutrophils # (1.8-7.7) K/mm3 PT 12.3 (12.2-14.9) Sec. INR 0.93 (0.87-1.13) APTT 24.2 (24.2-36.6) Sec. Sodium (137-145) mmol/L Potassium (3.6-5.0) mmol/L Chloride (98-107) mmol/L Carbon Dioxide (22-30) mmol/L Anion Gap mmol/L BUN (9-20) mg/dL Creatinine (0.8-1.3) mg/dL Estimated GFR ml/min BUN/Creatinine Ratio % Glucose (75-100) mg/dL POC Glucose (70-105) mg/dL Calcium (8.4-10.2) mg/dL Total Bilirubin (0.1-1.2) mg/dL AST (5-40) units/L ALT (7-56) units/L Alkaline Phosphatase (35-129) units/L Troponin T (0.00-0.029) ng/mL Total Protein (6.3-8.2) g/dL Albumin (3.9-5) g/dL Albumin/Globulin Ratio % Salicylates < 0.3 L (2.8-20.0) mg/dL Acetaminophen 5.0 L (10.0-30.0) ug/mL Plasma/Serum Alcohol (0-0.07) % 06/01/20 Range/Units 15:46 WBC (4.5-11.0) K/mm3 RBC (3.65-5.03) M/mm3 Hgb (11.8-15.2) gm/dl Hct (35.5-45.6) % MCV (84-94) fl MCH (28-32) pg MCHC (32-34) % RDW (13.2-15.2) % Plt Count (140-440) K/mm3 Lymph % (Auto) (13.4-35.0) % [place] % (Auto) (0.0-7.3) % Eos % (Auto) (0.0-4.3) % Baso % (Auto) (0.0-1.8) % Lymph # (Auto) (1.2-5.4) K/mm3 [place] # (Auto) (0.0-0.8) K/mm3 Eos # (Auto) (0.0-0.4) K/mm3 Baso # (Auto) (0.0-0.1) K/mm3 Seg Neutrophils % (40.0-70.0) % Seg Neutrophils # (1.8-7.7) K/mm3 PT (12.2-14.9) Sec. INR (0.87-1.13) APTT (24.2-36.6) Sec. Sodium (137-145) mmol/L Potassium (3.6-5.0) mmol/L Chloride (98-107) mmol/L Carbon Dioxide (22-30) mmol/L Anion Gap mmol/L BUN (9-20) mg/dL Creatinine (0.8-1.3) mg/dL Estimated GFR ml/min BUN/Creatinine Ratio % Glucose (75-100) mg/dL POC Glucose (70-105) mg/dL Calcium (8.4-10.2) mg/dL Total Bilirubin (0.1-1.2) mg/dL AST (5-40) units/L ALT (7-56) units/L Alkaline Phosphatase (35-129) units/L Troponin T (0.00-0.029) ng/mL Total Protein (6.3-8.2) g/dL Albumin (3.9-5) g/dL Albumin/Globulin Ratio % Salicylates (2.8-20.0) mg/dL Acetaminophen (10.0-30.0) ug/mL Plasma/Serum Alcohol < 0.01 (0-0.07) % - EKG Data -: EKG Interpreted by Me EKG shows normal: sinus rhythm Rate: normal - Radiology Data Radiology results: report reviewed - Medical Decision Making Patient was given 2 mg Ativan and 1000 milligrams Keppra for seizure which was successful at mitigating the seizure Patient elevated white count is likely secondary to the patient's acute stress r eaction from seizure activity CT head does not show acute findings Results discussed Critical care attestation.: If time is entered above; I have spent that time in minutes in the direct care of this critically ill patient, excluding procedure time. ED Disposition Clinical Impression: Seizure, Hypertension Disposition: DC- TO HOME OR SELFCARE Is pt being admited?: No Does the pt Need Aspirin: No Condition: Stable Instructions: Hypertension (ED), Seizure, Adult, [id number], Hypertension, Adult, [id number] Additional Instructions: return if worse Prescriptions: amLODIPine [Norvasc] 10 mg PO DAILY #30 tab hydroCHLOROthiazide [Hctz] 12.5 mg PO QDAY #30 capsule levETIRAcetam [Keppra TAB] 500 mg PO BID #60 tablet Referrals: PRIMARY CARE, [Primary Care Provider] - 3-5 Days JEN DANG MD [Referring] - 3-5 Days SHAWN MIRANDA MD [Staff Physician] - 3-5 Days Time of Disposition: 17:33
[2020-06-01 18:28] VITALS: BP 173/110
== END 2020-06-01 18:18 | disposition home or self-care (01) ==
LOC: ED 13:49
DX: R56.9 Unspecified convulsions (principal); I10 Essential (primary) hypertension; F17.200 Nicotine dependence, unspecified, uncomplicated; Z98.890 Other specified postprocedural states; Z79.899 Other long term (current) drug therapy
CPT/HCPCS: 36415; 70450; 80053; 82962; 84484; 85025; 85610; 85730; 93005; 96372; 96374; 99284; J0360; J2060; 80320; G0480